=== PATIENT | female | born 1985 | race Caucasian/White ===

== ENCOUNTER 2016-06-30 09:54 | Emergency (ER) | payer SELFPAY ==
[~2016-06-30] VITALS: Ht 160 cm; Wt 59.9 kg
--- OUTSIDE RECORDS SUMMARY | 2016-06-30 10:00 | XMS REPORT | Continuity of Care Document ---
Author Author Interface Organization Interface Address Unknown Phone Unavailable Problems Problem Status Onset Date Classification Date Reported Comments Source No data available for this section Problem 06/21/2015 [facility] Medications Medication Details Route Status Patient Instructions Ordering Provider Order Date Source No Known Medications No known medications Active [facility] Allergies, Adverse Reactions, Alerts Substance Category Reaction Severity Reaction type Status Date Reported Comments Source Cephalexin Assertion Drug allergy [facility] Immunizations Immunization Date Given Site Status Last Updated Comments Source No data available for this section No data available for this section [facility]. Results Order Name Results Value Reference Range Date Interpretation Comments Source Vital Signs Vital Sign Value Date Comments Source Encounters Location Location Details Encounter Type Encounter Number Reason For Visit Attending Provider ADM Date DC Date Status Source [facility] [id number] Inpatient [id number] Baljeet Christianson 06/17/201506/17 Active [facility] [id number] Baljeet Christianson 06/18/2015 06/18/2015 [facility] Procedures Procedure Code Date Perfomer Comments Source Cholecystectomy; 04089 [facility] Thyroidectomy, total or complete 55014 [facility]
[2016-06-30] MEDS ORDERED: GABA-486 PO (10:44)
[2016-06-30] MEDS ORDERED: CALC-464 PO (10:44)
[2016-06-30] MEDS ORDERED: LEVO50TA6 PO (10:44)
[2016-06-30] MEDS ORDERED: GNT.3OO351 OU (11:52)
[2016-06-30] MEDS ORDERED: FLUT9.9S NS (11:52)
[2016-06-30] MEDS ORDERED: BENZ-13 PO (11:52)
[2016-06-30] MEDS ORDERED: LORA1TAB59 PO (11:52)
[2016-06-30] MEDS ORDERED: AMOX-358 PO (11:52)
--- NOTE | 2016-06-30 11:53 | ED Cough/URI ---
General Chief Complaint: Cough/Cold/Flu Symptoms Stated Complaint: EYE/THROAT CONJESTION, DRAINAGE Nursing Triage Note: PT CO OF COLD COUGH AND FLU SX, PT ALSO HAS BILATERAL RED EYE IRRITAION Source: patient History of Present Illness Time seen by provider: 11:40 Initial Comments C/O COUGH, CONGESTION AND SUBJECTIVE FEVER FOR 2 DAYS C/O HEADACHE C/O BODY ACHES LAST WEEK STARTED HAVING MULTIPLE STYES TO EYELIDS, NOW ARE DRAINING/EYES MATTED --NO PRIOR HISTORY OF SAME PT IS STAYING IN [facility] AND MULTIPLE SICK CONTACTS WITH SAME, AND OTHER FEMALE STAYING THERE IS ALSO BEING SEEN IN ER FOR SAME PCP: NON--JUST MOVED HERE FROM [place] Allergies and Home Medications Allergies Coded Allergies: cephalexin (Verified Allergy, Unknown, 06/30/16) Home Medications Amoxicillin/Potassium Clav 1 Each Tablet #20 1 EACH PO BID Prescribed by: GARRETT ESQUIVEL on 06/30/16 1152 Benzonatate 100 Mg Capsule #30 1-2 TAB PO TID Prescribed by: GARRETT ESQUIVEL on 06/30/16 1152 Calcium Citrate/Vitamin D2 1 Each Tablet Unknown Dose PO (Reported) Fluticasone Propionate 9.9 Ml [place].susp #1 2 SPRAYS NS BID Prescribed by: GARRETT ESQUIVEL on 06/30/16 1152 Gabapentin 100 Mg Capsule Unknown Dose PO (Reported) Gentamicin Sulfate 3.5 Gm Oint...g. #3.5 0.5 INCH OU QID Prescribed by: GARRETT ESQUIVEL on 06/30/16 1152 Levothyroxine Sodium 50 Mcg Tablet Unknown Dose PO (Reported) Loratadine/Pseudoephedrine 1 Each Tab.er.12h #20 1 EACH PO BID Prescribed by: GARRETT ESQUIVEL on 06/30/16 1152 Constitutional: see HPI fever EENTM: nose congestion see HPI Respiratory: see HPI cough Cardiovascular: no symptoms reported Genitourinary: no symptoms reported Musculoskeletal: see HPI (BODY ACHES) Skin: no symptoms reported Psychiatric/Neurological: See HPI Headache Hematologic/Lymphatic: No Symptoms Reported Immunological/Allergic: no symptoms reported Past Beoqntw-Rmvifc-Bwniuf Hx Patient Social History Alcohol Use: Denies Use Recreational Drug Use: No Smoking Status: Current Everyday Smoker Recent Foreign Travel: No Contact w/Someone Who Travel: No Recent Infectious Disease Expo: No Recent Hopitalizations: No Physical Abuse Screen: No Sexual Abuse: No Surgeries HX Surgeries: Yes (ABLATION AND THYROID) Respiratory Hx Respiratory Disorders: No Cardiovascular Hx Cardiac Disorders: No Neurological Hx Neurological Disorders: No Genitourinary Hx Genitourinary Disorders: No Gastrointestinal Hx Gastrointestinal Disorders: No Musculoskeletal Hx Musculoskeletal Disorders: No Endocrine Hx Endocrine Disorders: Yes Endocrine Disorders: Hypothyroidsim HEENT HX ENT Disorders: No Cancer Hx Cancer: No Psychosocial Hx Psychiatric Problems: No Integumentary HX Skin/Integumentary Disorder: No Physical Exam Vital Signs Vital Sign - Last 12Hours 06/30/16 10:30 Temp 97.8 Pulse 116 Resp 18 B/P 129/88 Pulse Ox 97 Capillary Refill : Less Than 3 Seconds General Appearance: WD/WN no apparent distress Eyes: Bilateral Eye Other (MULTIPLE STYES TO BOTH EYES. NO DRAINAGE OR MATTING NOTED AT THIS TIME. CONJUNCTIVA ARE NORMAL) HEENT: PERRL/EOMI TMs normal other (NASAL MUCOSAL EDEMA, YELLOW RHINORRHEA AND POST NASAL DRAINAGE. 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 no motor/sensory deficits alert normal mood/affect oriented x 3 Skin: normal color warm/dry Lymphatic: no adenopathy Progress/Results/Core Measures Results/Orders Micro Results Microbiology 06/30/16 Influenza Types A,B Antigen (JULIO) - Final, Complete My Orders Orders-GARRETT ESQUIVEL DO Influenza A And B Antigens (06/30/16 10:45) Vital Signs/I&O Vital Sign - Last 12Hours 06/30/16 06/30/16 10:30 12:07 Temp 97.8 97.8 Pulse 116 116 Resp 18 18 B/P 129/88 Pulse Ox 97 97 Blood Pressure Mean: 102 Departure Impression Impression: Primary Impression: Bronchitis Additional Impressions: Sinusitis MULTIPLE STYES Disposition: 01 HOME, SELF-CARE Condition: Stable Departure-Patient Inst. Referrals: NO,LOCAL PHYSICIAN (PCP/Family) Primary Care Physician Patient Instructions: Acute Bronchitis, Adult (DC), Bacterial Upper Respiratory Infection, Adult (DC), Stye (Hordeolum) Add. Discharge Instructions: MOIST HEAT TO EYES AT 20 MINUTE INTERVALS TYLENOL AND MOTRIN NEEDED FOR PAIN OR FEVER LOTS OF CLEAR LIQUIDS ROBITUSSIN DM FOR COUGH FOLLOW UP WITH DRRay OF CHOICE IN 2-3 DAYS IF NO BETTER All discharge instructions reviewed with patient and/or family. Voiced understanding. Scripts Fluticasone Propionate (Flonase Allergy Relief)9.9 Ml [place].susp2 Sprays NS BID #1 SPRAY Prov:GARRETT ESQUIVEL DO 06/30/16 Loratadine/Pseudoephedrine (Claritin-D 12 Hour Tablet)1 Each Tab.er.12h1 Each PO BID #20 TAB Prov:GARRETT ESQUIVEL DO 06/30/16 Benzonatate (Tessalon Perle)100 Mg Capsule1-2 Tab PO TID Cough #30 CAP Prov:GARRETT ESQUIVEL DO 06/30/16 Gentamicin Sulfate (Gentak)3.5 Gm Oint...g.0.5 Inch OU QID #3.5 TUBE Prov:GARRETT ESQUIVEL DO 06/30/16 Amoxicillin/Potassium Clav (Augmentin 875-125 Tablet)1 Each Tablet1 Each PO BID INFECTION #20 TAB Prov:GARRETT ESQUIVEL DO 06/30/16 GARRETT ESQUIVEL DO Jun 30, 2016 11:53
[2016-06-30 12:07] VITALS: BP 129/88
== END 2016-06-30 12:07 | disposition home or self-care (01) ==
LOC: ER 09:57
DX: J20.9 Acute bronchitis, unspecified (principal); J01.90 Acute sinusitis, unspecified; H00.026 Hordeolum internum left eye, unspecified eyelid; H00.023 Hordeolum internum right eye, unspecified eyelid; F17.210 Nicotine dependence, cigarettes, uncomplicated
CPT/HCPCS: 87804; 99283

== ENCOUNTER 2016-09-22 10:49 | Emergency (ER) | payer SELFPAY ==
[~2016-09-22] VITALS: Ht 160 cm; Wt 59.0 kg
[~2016-09-22 10:49] MED LIST: AMOX-358 PO; BENZ-13 PO; CALC-464 PO; FLUT9.9S NS; GABA-486 PO; GNT.3OO351 OU; LEVO50TA6 PO; LORA1TAB59 PO
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
[2016-09-22 11:52] LABS: BILIRUBIN,URINE NEGATIVE (NEGATIVE); KETONES,URINE 2+ (NEGATIVE); LEUKOCYTE ESTERASE ,URINE 2+ (NEGATIVE); NITRITE,URINE NEGATIVE (NEGATIVE); PH,URINE 7 (5-9); PROTEIN,URINE 2+ (NEGATIVE); UROBILINOGEN,URINE 1 MG/DL (NORMAL)
[2016-09-22 12:04] LABS: BASOPHILS # (AUTO) 0.1 10^3/uL (0.0-0.1); BASOPHILS % (AUTO) 0 % (0-10); EOSINOPHILS # (AUTO) 0.1 10^3/uL (0.0-0.3); EOSINOPHILS % (AUTO) 0 % (0-10); LYMPHOCYTES # (AUTO) 2.4 X 10^3 (1.0-4.0); LYMPHOCYTES % (AUTO) 14 % (12-44); MEAN CORPUSCULAR HEMOGLOBIN 32 PG (25-34); MEAN CORPUSCULAR HGB CONC 36 G/DL (32-36); MEAN CORPUSCULAR VOLUME 89 FL (80-99); MEAN PLATELET VOLUME 11.4 FL (7.4-10.4); MONOCYTES # (AUTO) 1.2 X 10^3 (0.0-1.0); MONOCYTES % (AUTO) 7 % (0-12); NEUTROPHILS # (AUTO) 13.8 X 10^3 (1.8-7.8); NEUTROPHILS % (AUTO) 79 % (42-75); PLATELET COUNT 251 10^3/uL (130-400); RED BLOOD COUNT 5.24 10^6/uL (4.35-5.85); RED CELL DISTRIBUTION WIDTH 14.8 % (10.0-14.5); WHITE BLOOD COUNT 17.6 10^3/uL (4.3-11.0)
[2016-09-22 12:06] LABS: WBC,URINE 0-2 /HPF
[2016-09-22 12:21] LABS: BAND NEUTROPHILS 1 %; BASOPHILS % (MANUAL) 0 %; EOSINOPHILS % (MANUAL) 0 %; LYMPHOCYTES % (MANUAL) 11 %; NEUTROPHILS % (MANUAL) 81 %
[2016-09-22 12:25] LABS: ALANINE AMINOTRANSFERASE 19 U/L (0-55); ALBUMIN 4.6 G/DL (3.2-4.5); ANION GAP 13 MMOL/L (5-14); ASPARTATE AMINO TRANSFERASE 19 U/L (5-34); BILIRUBIN,TOTAL 0.5 MG/DL (0.1-1.0); BLOOD UREA NITROGEN 17 MG/DL (7-18); BUN/CREATININE RATIO 20; CALCIUM 8.1 MG/DL (8.5-10.1); CARBON DIOXIDE 26 MMOL/L (21-32); CHLORIDE 107 MMOL/L (98-107); CREATININE SERUM 0.86 MG/DL (0.60-1.30); GFR ESTIMATED > 60; GLUCOSE 93 MG/DL (70-105); SALICYLATE < 5.0 MG/DL (5.0-20.0); SODIUM 146 MMOL/L (135-145); TOTAL PROTEIN 7.7 G/DL (6.4-8.2)
[2016-09-22 12:28] LABS: ACETAMINOPHEN < 10 UG/ML (10-30); ALCOHOL < 10 MG/DL (<10)
[2016-09-22] MEDS ORDERED: ALPRAZolam 0.25 MG (XANAX) TAB PO ONE (12:30)
[2016-09-22 13:40] VITALS: BP 135/84
--- OUTSIDE RECORDS SUMMARY | 2016-10-07 17:55 | XMS REPORT | Clinical Summary ---
Author Author Admin, VESTA Hatch [facility] Address Unknown Phone Unavailable Allergies, Adverse Reactions, Alerts Allergy Name Reaction Description Start Date Severity Status Provider KEFLEX Short of air, dizzy Critical Active Callie Benitez MD Conditions or Problems Problem Name Problem Code Onset Date Status Entry Date Provider Comment Standard Description Annotate SEIZURE DISORDER 780.39 Active Callie Benitez MD Other convulsions BENIGN ESSENTIAL HYPERTENSION ANTEPARTUM 642.03 Active Callie Benitez MD Benign essential hypertension complicating , childbirth, and the puerperium, antepartum condition or complication SUPERVISION, NORMAL , PRIMIGRAVIDA V22.0 Active Callie Benitez MD Supervision of normal first HYPOTHYROIDISM 244.9 Active Callie Benitez MD Unspecified hypothyroidism ANEMIA 285.9 Active Callie Benitez MD Anemia, unspecified OTHER ABNORMAL GLUCOSE 790.29 Resolved Callie Benitez MD Other abnormal glucose RH FACTOR, NEGATIVE 656.10 Active Callie Benitez MD Rhesus isoimmunization affecting management of mother, unspecified as to episode of care or not applicable Abdominal pain 789.00 Resolved Callie Benitez MD Abdominal pain, unspecified site ABDOMINAL PAIN, EPIGASTRIC 789.06 Active Justin Colbert MD Abdominal pain, epigastric Gastroenteritis, viral, acute 008.8 Active Michele Claudio DO Intestinal infection due to other organism, not elsewhere classified Accidental fall E888.9 Active Michele Claudio DO Unspecified fall OTHER ABNORMAL GLUCOSE ICD-790.29 Inactive Callie Benitez MD Abdominal pain ICD-789.00 Inactive Callie Benitez MD Medication List Medication Instructions Start Date Stop Date Generic Name NDC Status Provider Patient Instruction LEVETIRACETAM 500 MG TABS take 1/2 by mouth twice a day LEVETIRACETAM 09305660829 Active Grecia Wesley APRN Active OMEPRAZOLE 20 MG CPDR 1 tablet by mouth daily OMEPRAZOLE 56105569023 Active Grecia Wesley APRN Active PLUS 27-1 MG TABS Take one by mouth daily VIT-FE FUMARATE-FA 48946484000 No Longer Active Grecia Wesley APRN Active FOLIC ACID 1 MG TABS Take one by mouth four times daily, morning, noon, early evening and bedtime. FOLIC ACID 82501232629 No Longer Active Grecia Wesley APRN Active ZOFRAN ODT 4 MG TBDP one tab PO Q8 hours PRN ONDANSETRON 04311569800 No Longer Active Grecia Wesley APRN Active LEVOTHYROXINE SODIUM 150 MCG TABS Take one by mouth daily LEVOTHYROXINE SODIUM 04729972529 Active Grecia Wesley APRN Active LEVOTHROID 25 MCG TABS one tab PO daily LEVOTHYROXINE SODIUM 74711982650 No Longer Active Anupllerum Wesley APRN Active LEVOTHROID 137 MCG TABS 1 tab po qd with 25mcg LEVOTHYROXINE SODIUM 34263962489 No Longer Active Grecia Wesley APRN Active RAMONA 0.35 MG TABS NORETHINDRONE 30303203091 Active Callie Benitez MD Active METOPROLOL SUCCINATE ER 50 MG [id number] by mouth twice a day METOPROLOL SUCCINATE 90846220956 No Longer Active Callie Benitez MD Active POTASSIUM 99 MG TABS by mouth twice a day POTASSIUM 50183817871 No Longer Active Callie Benitez MD Active AMOXICILLIN 500 MG CAPS by mouth twice a day AMOXICILLIN 25372874016 No Longer Active Callie Benitez MD Active ULTRAM 50 MG TABS 1 tab every 4-6 hours as needed TRAMADOL HCL 78880129925 No Longer Active Callie Benitez MD Active HYDROCODONE-ACETAMINOPHEN 5-500 MG TABS 1 tab every 4-6 hours as needed HYDROCODONE-ACETAMINOPHEN 21413533143 No Longer Active Callie Benitez MD Active CALCIUM 600 MG TABS by mouth twice a day CALCIUM 87721598863 Active Callie Benitez MD Active HYDROCODONE-ACETAMINOPHEN 5-500 MG TABS 1 tab every 4-6 hours as needed HYDROCODONE-ACETAMINOPHEN 5-500 MG TABS HYDROCODONE- ACETAMINOPHEN Inactive ULTRAM 50 MG TABS 1 tab every 4-6 hours as needed ULTRAM 50 MG TABS 401582 TRAMADOL HCL Inactive AMOXICILLIN 500 MG CAPS by mouth twice a day AMOXICILLIN 500 MG CAPS 982621 AMOXICILLIN Inactive POTASSIUM 99 MG TABS by mouth twice a day POTASSIUM 99 MG TABS 696345 POTASSIUM Inactive METOPROLOL SUCCINATE ER 50 MG [id number] by mouth twice a day METOPROLOL SUCCINATE ER 50 MG [id number] METOPROLOL SUCCINATE Inactive LEVOTHROID 137 MCG TABS 1 tab po qd with 25mcg LEVOTHROID 137 MCG TABS LEVOTHYROXINE SODIUM Inactive LEVOTHROID 25 MCG TABS one tab PO daily LEVOTHROID 25 MCG TABS LEVOTHYROXINE SODIUM Inactive ZOFRAN ODT 4 MG TBDP one tab PO Q8 hours PRN ZOFRAN ODT 4 MG TBDP 687688 ONDANSETRON Inactive FOLIC ACID 1 MG TABS Take one by mouth four times daily, morning, noon, early evening and bedtime. FOLIC ACID 1 MG TABS 547816 FOLIC ACID Inactive PLUS 27-1 MG TABS Take one by mouth daily PLUS 27-1 MG TABS VIT-FE FUMARATE-FA Inactive Advance Directives Directive Description Start Date PERMISSION TO SHARE Immunizations Vaccine Administration Date Value Standard Description Seasonal influenza vaccine, injectable, containing preservative, for > 3 years old (Afluria, FluLaval, Fluzone, Fluvirin, Fluarix, Agriflu(>=18 yo)) Fluzone (>3 yrs.) [[id number]] Influenza, seasonal, injectable Boostrix (Tetanus toxoid, reduced diphtheria toxoid and acellular pertussis vaccine, adsorbed), booster Boostrix [[id number]] tetanus toxoid, reduced diphtheria toxoid, and acellular pertussis vaccine, adsorbed hepatitis B vaccine series no hepatitis B vaccine, unspecified formulation Vital Signs Date Name Value Unit Range Description blood pressure, diastolic - 8462-4 68 mm[Hg] BP raines blood pressure, systolic - 8480-6 110 mm[Hg] BP sys pulse rate E&M - 8867-4 96 /min Heart rate temperature E&M 97.3 [degF] Body temperature blood pressure, diastolic - 8462-4 90 mm[Hg] BP raines blood pressure, systolic - 8480-6 135 mm[Hg] BP sys height E&M - 8302-2 63 [in_us] Bdy height pulse rate E&M - 8867-4 102 /min Heart rate temperature E&M 98.4 [degF] Body temperature weight E&M - 3141-9 153 [lb_av] Weight Measured Encounters Code Encounter Date Provider Facility CPT-55585 Level 3 Est. Patient 12:16:13 SMALL ENGINE TECHNICIAN Michele Claudio DO [facility] CPT-80987 Level 3 Est. Patient 14:44:28 CDT Justin Colbert MD [facility] Procedures Code Procedure Name Date Entry Date Standard Description CPT-25563 Visit 16:12:23 SMALL ENGINE TECHNICIAN CPT-13321 Visit 11:24:43 SMALL ENGINE TECHNICIAN CPT-87428 Sono-OB F/U Growth 11:20:39 SMALL ENGINE TECHNICIAN CPT-32857 Visit 14:24:09 SMALL ENGINE TECHNICIAN CPT-68594 Sono OB comp > 14 weeks 09:57:55 CDT CPT-78920 Visit 09:31:46 CDT CPT-34593 Visit 14:37:39 CDT CPT-92291 Sono OB comp > 14 weeks 17:52:59 CDT CPT-47452 Administration 2+ single or combination vaccines inc oral 16:49:57 CDT CPT-13639 Administration single or combination vaccine inc oral 16 :49:57 CDT CPT-20733 Influenza split virus > age 3 16:49:57 CDT CPT-97774 Tdap 16:49:57 CDT CPT-34079 Spec Collection and Handling Fee 14:43:01 CDT CPT-31138 Visit 14:43:01 CDT CPT-OV Office Visit 09:48:35 CDT
--- OUTSIDE RECORDS SUMMARY | 2016-10-07 17:55 | XMS REPORT | Clinical Summary ---
Author Author Admin, VESAT Hatch [facility] Address Unknown Phone Unavailable Allergies, Adverse Reactions, [...] 1/2 by mouth twice a day LEVETIRACETAM 47422215520 Active Grecia Wesley APRN Active OMEPRAZOLE 20 MG CPDR 1 tablet by mouth daily OMEPRAZOLE 66197583573 Active Grecia Wesley APRN Active PLUS 27-1 MG TABS Take one by mouth daily VIT-FE FUMARATE-FA 32341121624 No Longer Active Grecia Wesley APRN Active FOLIC ACID 1 MG TABS Take one by mouth four times daily, morning, noon, early evening and bedtime. FOLIC ACID 99940615737 No Longer Active Grecia Wesley APRN Active ZOFRAN ODT 4 MG TBDP one tab PO Q8 hours PRN ONDANSETRON 10406035568 No Longer Active Grecia Wesley APRN Active LEVOTHYROXINE SODIUM 150 MCG TABS Take one by mouth daily LEVOTHYROXINE SODIUM 63074752167 Active Grecia Wesley APRN Active LEVOTHROID 25 MCG TABS one tab PO daily LEVOTHYROXINE SODIUM 04205701714 No Longer Active Anupllerum Wesley APRN Active LEVOTHROID 137 MCG TABS 1 tab po qd with 25mcg LEVOTHYROXINE SODIUM 87525238954 No Longer Active Grecia Wesley APRN Active RAMONA 0.35 MG TABS NORETHINDRONE 21437340324 Active Callie Benitez MD Active METOPROLOL SUCCINATE ER 50 MG [id number] by mouth twice a day METOPROLOL SUCCINATE 69294418603 No Longer Active Callie Benitez MD Active POTASSIUM 99 MG TABS by mouth twice a day POTASSIUM 21528584186 No Longer Active Callie Benitez MD Active AMOXICILLIN 500 MG CAPS by mouth twice a day AMOXICILLIN 54561262123 No Longer Active Callie Benitez MD Active ULTRAM 50 MG TABS 1 tab every 4-6 hours as needed TRAMADOL HCL 72774988732 No Longer Active Callie Benitez MD Active HYDROCODONE-ACETAMINOPHEN 5-500 MG TABS 1 tab every 4-6 hours as needed HYDROCODONE-ACETAMINOPHEN 69353190541 No Longer Active Callie Benitez MD Active CALCIUM 600 MG TABS by mouth twice a day CALCIUM 08855668080 Active Callie Benitez MD Active HYDROCODONE-ACETAMINOPHEN 5-500 MG TABS 1 tab every 4-6 hours as needed HYDROCODONE-ACETAMINOPHEN 5-500 MG TABS HYDROCODONE- ACETAMINOPHEN Inactive ULTRAM 50 MG TABS 1 tab every 4-6 hours as needed ULTRAM 50 MG TABS 508620 TRAMADOL HCL Inactive AMOXICILLIN 500 MG CAPS by mouth twice a day AMOXICILLIN 500 MG CAPS 572878 AMOXICILLIN Inactive POTASSIUM 99 MG TABS by mouth twice a day POTASSIUM 99 MG TABS 397681 POTASSIUM Inactive METOPROLOL SUCCINATE ER 50 MG [id number] by mouth twice a day METOPROLOL SUCCINATE ER 50 MG [id number] METOPROLOL SUCCINATE Inactive LEVOTHROID 137 MCG TABS 1 tab po qd with 25mcg LEVOTHROID 137 MCG TABS LEVOTHYROXINE SODIUM Inactive LEVOTHROID 25 MCG TABS one tab PO daily LEVOTHROID 25 MCG TABS LEVOTHYROXINE SODIUM Inactive ZOFRAN ODT 4 MG TBDP one tab PO Q8 hours PRN ZOFRAN ODT 4 MG TBDP 856671 ONDANSETRON Inactive FOLIC ACID 1 MG TABS Take one by mouth four times daily, morning, noon, early evening and bedtime. FOLIC ACID 1 MG TABS 420742 FOLIC ACID Inactive PLUS 27-1 MG TABS Take one by mouth daily PLUS 27-1 MG TABS VIT-FE FUMARATE-FA Inactive Advance Directives Directive Description Start Date PERMISSION TO SHARE Immunizations Vaccine Administration Date Value Standard Description Seasonal influenza vaccine, injectable, containing preservative, for > 3 years old (Afluria, FluLaval, Fluzone, Fluvirin, Fluarix, Agriflu(>=18 yo)) Fluzone (>3 yrs.) [[id number]] Influenza, seasonal, injectable Boostrix (Tetanus toxoid, reduced diphtheria toxoid and acellular pertussis vaccine, adsorbed), booster Boostrix [[id number]] tetanus toxoid, reduced diphtheria toxoid, and acellular [...] E&M - 3141-9 153 [lb_av] Weight Measured Diagnostic Results Date Name Value Unit Range Description Lab Report: CBC, Comp. Metabolic Panel, UADIP W/MICRO, AUTO - Chemistry sodium, serum 146 mmol/L 905-352 0795/02/26 potassium, serum 4.7 mmol/L 3.5-5.2 chloride, serum 106 mmol/L 98-107 carbon dioxide, venous blood 22.7 mmol/L 21.0-32.0 blood glucose 98 mg/dL 65-110 urea nitrogen, blood 25 mg/dL 7-18 creatinine, serum 1.10 mg/dL 0.60-1.30 alanine aminotransferase (SGPT), serum 27 U/L 12-78 aspartate aminotransferase (SGOT), serum 13 U/L 15-37 calcium, serum 8.8 mg/dL 8.5-10.1 bilirubin, serum, total 0.40 mg/dL 0.00-1.00 protein, total urine random 2+ mg/dL Negative RBC, urine, dipstick Negative Negative Lab Report: CBC, Comp. Metabolic Panel, UADIP W/MICRO, AUTO - Hematology leukocyte count, blood 9.5 10^3/MM^3 10*3/mm3 4.6-10.2 erythrocyte (RBC) count 4.88 10^6/MM^3 10*6/mm3 4.04-5.48 hemoglobin, blood 16.4 g/dL 12.0-16.0 hematocrit, blood 47.7 % 36.0-46.0 mean corpuscular volume, RBC 98 fL 80-97 mean corpuscular hemoglobin, RBC 33.6 pg 27.0-31.2 mean corpuscular hemoglobin concentration, RBC 34.4 G/DL % 31.8- 35.4 red blood cell distribution width 13.8 % 11.6-14.8 platelet count 257 10^3/MM^3 10*3/mm3 142-424 Lab Report: CBC, Comp. Metabolic Panel, UADIP W/MICRO, AUTO - Urinalysis urine color Yellow Colorless;Lightyellow;Straw;Yellow appearance, urine Cloudy Clear specific gravity, urine >=1.030 1.000-1.030 pH, urine, semiquantitative 6.0 5.0-8.5 urobilinogen, urine, semiquantitative (dipstick) 0.2 Normal leukocyte esterase, urine, by dipstick Trace Negative nitrite, urine, semiquantitative Negative Negative glucose, urine, semiquantitative Negative Negative ketones, urine, by test strip Trace Negative bilirubin, urine 1+ Negative Encounters Code Encounter Date Provider Facility CPT-43871 Level 3 Est. Patient 12:16:13 SHIPPING TEAM LEADER Michele Claudio DO [facility] CPT-45985 Level 3 Est. Patient 14:44:28 CDT Justin Colbert MD [facility] Procedures Code Procedure Name Date Entry Date Standard Description CPT-53831 Visit 16:12:23 SHIPPING TEAM LEADER CPT-84396 Visit 11:24:43 SHIPPING TEAM LEADER CPT-10530 Sono-OB F/U Growth 11:20:39 SHIPPING TEAM LEADER CPT-49860 Visit 14:24:09 SHIPPING TEAM LEADER CPT-10667 Son[facility] OB comp > 14 weeks 09:57:55 CDT CPT-07472 Visit 09:31:46 CDT CPT-90300 Visit 14:37:39 CDT CPT-46906 Sono OB comp > 14 weeks 17:52:59 CDT CPT-96546 Administration 2+ single or combination vaccines inc oral 16:49:57 CDT CPT-69633 Administration single or combination vaccine inc oral 16 :49:57 CDT CPT-68454 Influenza split virus > age 3 16:49:57 CDT CPT-71518 Tdap 16:49:57 CDT CPT-28294 Spec Collection and Handling Fee 14:43:01 CDT CPT-74658 Visit 14:43:01 CDT CPT-OV Office Visit 09:48:35 CDT
--- OUTSIDE RECORDS SUMMARY | 2016-10-07 17:55 | XMS REPORT | Continuity of Care Document ---
Author Author [employer] [facility] Address Unknown Phone Unavailable Care Team Providers Care Carpenter Assistant Installer Name Role Phone [employer] Unavailable Unavailable Problems Problem Status Onset Date Classification Date Reported Comments Source No data available for this section Problem 06/21/2015 [facility] Medication Details Route Status Patient Instructions Ordering Provider Order Date Source No Known Medications No known medications Active [employer] Allergies, Adverse Reactions, Alerts Substance Category Reaction Severity Reaction type Status Date Reported Comments Source Cephalexin Assertion Drug allergy [email or web address] Immunizations Immunization Date Given Site Status Last Updated Comments Source No data available for this section No data available for this section [facility] Results Vital Signs Encounters Location Location Details Encounter Type Encounter Number Reason For Visit Attending Provider ADM Date DC Date Status Source [facility] [id number] Inpatient [id number] Baljeet Carvajalw 06/17/201506/17 Active [employer] Procedures Procedure Code Date Perfomer Comments Source Cholecystectomy; 57579 [employer] Thyroidectomy, total or complete 22656 [employer] Plan of Care Social History Assessment and Plan Family History Value Date Source Advance Directives Order Name Results Value Date Source
--- OUTSIDE RECORDS SUMMARY | 2016-10-07 17:56 | XMS REPORT | Clinical Summary ---
Author Author Admin, VESTA Hatch [facility] Address Unknown Phone Unavailable Allergies, Adverse Reactions, [...] 1/2 by mouth twice a day LEVETIRACETAM 06775932403 Active Grecia Wesley APRN Active OMEPRAZOLE 20 MG CPDR 1 tablet by mouth daily OMEPRAZOLE 16027866245 Active Grecia Wesley APRN Active PLUS 27-1 MG TABS Take one by mouth daily VIT-FE FUMARATE-FA 01286599373 No Longer Active Grecia Wesley APRN Active FOLIC ACID 1 MG TABS Take one by mouth four times daily, morning, noon, early evening and bedtime. FOLIC ACID 49202222287 No Longer Active Grecia Wesley APRN Active ZOFRAN ODT 4 MG TBDP one tab PO Q8 hours PRN ONDANSETRON 60928795645 No Longer Active Grecia Wesley APRN Active LEVOTHYROXINE SODIUM 150 MCG TABS Take one by mouth daily LEVOTHYROXINE SODIUM 57555768151 Active Grecia Wesley APRN Active LEVOTHROID 25 MCG TABS one tab PO daily LEVOTHYROXINE SODIUM 77574004891 No Longer Active Anupllerum Wesley APRN Active LEVOTHROID 137 MCG TABS 1 tab po qd with 25mcg LEVOTHYROXINE SODIUM 86726924044 No Longer Active Grecia Wesley APRN Active RAMONA 0.35 MG TABS NORETHINDRONE 89715531480 Active Callie Benitez MD Active METOPROLOL SUCCINATE ER 50 MG [id number] by mouth twice a day METOPROLOL SUCCINATE 68012623492 No Longer Active Callie Benitez MD Active POTASSIUM 99 MG TABS by mouth twice a day POTASSIUM 36924378361 No Longer Active Callie Benitez MD Active AMOXICILLIN 500 MG CAPS by mouth twice a day AMOXICILLIN 55144550562 No Longer Active Callie Benitez MD Active ULTRAM 50 MG TABS 1 tab every 4-6 hours as needed TRAMADOL HCL 37785439471 No Longer Active Callie Benitez MD Active HYDROCODONE-ACETAMINOPHEN 5-500 MG TABS 1 tab every 4-6 hours as needed HYDROCODONE-ACETAMINOPHEN 53851103925 No Longer Active Callie Benitez MD Active CALCIUM 600 MG TABS by mouth twice a day CALCIUM 14764571306 Active Callie Benitez MD Active HYDROCODONE-ACETAMINOPHEN 5-500 MG TABS 1 tab every 4-6 hours as needed HYDROCODONE-ACETAMINOPHEN 5-500 MG TABS HYDROCODONE- ACETAMINOPHEN Inactive ULTRAM 50 MG TABS 1 tab every 4-6 hours as needed ULTRAM 50 MG TABS 061362 TRAMADOL HCL Inactive AMOXICILLIN 500 MG CAPS by mouth twice a day AMOXICILLIN 500 MG CAPS 091875 AMOXICILLIN Inactive POTASSIUM 99 MG TABS by mouth twice a day POTASSIUM 99 MG TABS 026623 POTASSIUM Inactive METOPROLOL SUCCINATE ER 50 MG [id number] by mouth twice a day METOPROLOL SUCCINATE ER 50 MG [id number] METOPROLOL SUCCINATE Inactive LEVOTHROID 137 MCG TABS 1 tab po qd with 25mcg LEVOTHROID 137 MCG TABS LEVOTHYROXINE SODIUM Inactive LEVOTHROID 25 MCG TABS one tab PO daily LEVOTHROID 25 MCG TABS LEVOTHYROXINE SODIUM Inactive ZOFRAN ODT 4 MG TBDP one tab PO Q8 hours PRN ZOFRAN ODT 4 MG TBDP 513855 ONDANSETRON Inactive FOLIC ACID 1 MG TABS Take one by mouth four times daily, morning, noon, early evening and bedtime. FOLIC ACID 1 MG TABS 048315 FOLIC ACID Inactive PLUS 27-1 MG TABS Take one by mouth daily PLUS 27-1 MG TABS VIT-FE FUMARATE-FA Inactive Advance Directives Directive Description Start Date PERMISSION TO SHARE Immunizations Vaccine Administration Date Value Standard Description Seasonal influenza vaccine, injectable, containing preservative, for > 3 years old (Afluria, FluLaval, Fluzone, Fluvirin, Fluarix, Agriflu(>=18 yo)) Fluzone (>3 yrs.) [[id number]] Influenza, seasonal, injectable Boostrix (Tetanus toxoid, reduced diphtheria toxoid and acellular pertussis vaccine, adsorbed), booster Boostrix [[id number]] tetanus toxoid, reduced diphtheria toxoid, and acellular [...] AUTO - Chemistry sodium, serum 146 mmol/L 709-564 5788/02/26 potassium, serum 4.7 mmol/L 3.5-5.2 chloride, serum [...] Negative Encounters Code Encounter Date Provider Facility CPT-25348 Level 3 Est. Patient 12:16:13 ELECTROCARDIOGRAM TECHNICIAN Michele Claudio DO [facility] CPT-65195 Level 3 Est. Patient 14:44:28 CDT Justin Colbert MD [facility] Procedures Code Procedure Name Date Entry Date Standard Description CPT-31031 Visit 16:12:23 ELECTROCARDIOGRAM TECHNICIAN CPT-78169 Visit 11:24:43 ELECTROCARDIOGRAM TECHNICIAN CPT-80764 [facility]-OB F/U Growth 11:20:39 ELECTROCARDIOGRAM TECHNICIAN CPT-76378 Visit 14:24:09 ELECTROCARDIOGRAM TECHNICIAN CPT-71753 Sono OB comp > 14 weeks 09:57:55 CDT CPT-26420 Visit 09:31:46 CDT CPT-19400 Visit 14:37:39 CDT CPT-80049 Sono OB comp > 14 weeks 17:52:59 CDT CPT-73734 Administration 2+ single or combination vaccines inc oral 16:49:57 CDT CPT-07150 Administration single or combination vaccine inc oral 16 :49:57 CDT CPT-17489 Influenza split virus > age 3 16:49:57 CDT CPT-30416 Tdap 16:49:57 CDT CPT-84777 Spec Collection and Handling Fee 14:43:01 CDT CPT-62783 Visit 14:43:01 CDT CPT-OV Office Visit 09:48:35 CDT
--- OUTSIDE RECORDS SUMMARY | 2016-10-07 17:56 | XMS REPORT | Clinical Summary ---
Author Author Admin, VESTA Hatch [facility] Address Unknown Phone Unavailable Allergies, Adverse Reactions, [...] 1/2 by mouth twice a day LEVETIRACETAM 30737419343 Active Grecia Wesley APRN Active OMEPRAZOLE 20 MG CPDR 1 tablet by mouth daily OMEPRAZOLE 22206519986 Active Grecia Wesley APRN Active PLUS 27-1 MG TABS Take one by mouth daily VIT-FE FUMARATE-FA 14506044079 No Longer Active Grecia Wesley APRN Active FOLIC ACID 1 MG TABS Take one by mouth four times daily, morning, noon, early evening and bedtime. FOLIC ACID 59747085398 No Longer Active Grecia Wesley APRN Active ZOFRAN ODT 4 MG TBDP one tab PO Q8 hours PRN ONDANSETRON 28828804503 No Longer Active Grecia Wesley APRN Active LEVOTHYROXINE SODIUM 150 MCG TABS Take one by mouth daily LEVOTHYROXINE SODIUM 76883932152 Active Grecia Wesley APRN Active LEVOTHROID 25 MCG TABS one tab PO daily LEVOTHYROXINE SODIUM 21195110550 No Longer Active Anupllerum Wesley APRN Active LEVOTHROID 137 MCG TABS 1 tab po qd with 25mcg LEVOTHYROXINE SODIUM 91708204947 No Longer Active Grecia Wesley APRN Active RAMONA 0.35 MG TABS NORETHINDRONE 91616142978 Active Callie Benitez MD Active METOPROLOL SUCCINATE ER 50 MG [id number] by mouth twice a day METOPROLOL SUCCINATE 73355249655 No Longer Active Callie Benitez MD Active POTASSIUM 99 MG TABS by mouth twice a day POTASSIUM 43316301740 No Longer Active Callie Benitez MD Active AMOXICILLIN 500 MG CAPS by mouth twice a day AMOXICILLIN 01118769532 No Longer Active Callie Benitez MD Active ULTRAM 50 MG TABS 1 tab every 4-6 hours as needed TRAMADOL HCL 81085422400 No Longer Active Callie Benitez MD Active HYDROCODONE-ACETAMINOPHEN 5-500 MG TABS 1 tab every 4-6 hours as needed HYDROCODONE-ACETAMINOPHEN 72291441019 No Longer Active Callie Benitez MD Active CALCIUM 600 MG TABS by mouth twice a day CALCIUM 18070453002 Active Callie Benitez MD Active HYDROCODONE-ACETAMINOPHEN 5-500 MG TABS 1 tab every 4-6 hours as needed HYDROCODONE-ACETAMINOPHEN 5-500 MG TABS HYDROCODONE- ACETAMINOPHEN Inactive ULTRAM 50 MG TABS 1 tab every 4-6 hours as needed ULTRAM 50 MG TABS 019670 TRAMADOL HCL Inactive AMOXICILLIN 500 MG CAPS by mouth twice a day AMOXICILLIN 500 MG CAPS 096350 AMOXICILLIN Inactive POTASSIUM 99 MG TABS by mouth twice a day POTASSIUM 99 MG TABS 224472 POTASSIUM Inactive METOPROLOL SUCCINATE ER 50 MG [id number] by mouth twice a day METOPROLOL SUCCINATE ER 50 MG [id number] METOPROLOL SUCCINATE Inactive LEVOTHROID 137 MCG TABS 1 tab po qd with 25mcg LEVOTHROID 137 MCG TABS LEVOTHYROXINE SODIUM Inactive LEVOTHROID 25 MCG TABS one tab PO daily LEVOTHROID 25 MCG TABS LEVOTHYROXINE SODIUM Inactive ZOFRAN ODT 4 MG TBDP one tab PO Q8 hours PRN ZOFRAN ODT 4 MG TBDP 199661 ONDANSETRON Inactive FOLIC ACID 1 MG TABS Take one by mouth four times daily, morning, noon, early evening and bedtime. FOLIC ACID 1 MG TABS 518393 FOLIC ACID Inactive PLUS 27-1 MG TABS Take one by mouth daily PLUS 27-1 MG TABS VIT-FE FUMARATE-FA Inactive Advance Directives Directive Description Start Date PERMISSION TO SHARE Immunizations Vaccine Administration Date Value Standard Description Boostrix (Tetanus toxoid, reduced diphtheria toxoid and acellular pertussis vaccine, adsorbed), booster Boostrix [[id number]] tetanus toxoid, reduced diphtheria toxoid, and acellular pertussis vaccine, adsorbed Seasonal influenza vaccine, injectable, containing preservative, for > 3 years old (Afluria, FluLaval, Fluzone, Fluvirin, Fluarix, Agriflu(>=18 yo)) Fluzone (>3 yrs.) [[id number]] Influenza, seasonal, injectable hepatitis B vaccine series no hepatitis B [...] AUTO - Chemistry sodium, serum 146 mmol/L 011-856 9366/02/26 potassium, serum 4.7 mmol/L 3.5-5.2 chloride, serum [...] Negative Encounters Code Encounter Date Provider Facility CPT-92505 Level 3 Est. Patient 12:16:13 PERIANESTHESIA NURSE Michele Claudio DO [facility] CPT-18219 Level 3 Est. Patient 14:44:28 CDT Justin Colbert MD [facility] Procedures Code Procedure Name Date Entry Date Standard Description CPT-68309 Visit 16:12:23 PERIANESTHESIA NURSE CPT-98301 Visit 11:24:43 PERIANESTHESIA NURSE CPT-10212 Sono-OB F/U Growth 11:20:39 PERIANESTHESIA NURSE CPT-83456 Visit 14:24:09 PERIANESTHESIA NURSE CPT-68522 Sono OB comp > 14 weeks 09:57:55 CDT CPT-06673 Visit 09:31:46 CDT CPT-50090 Visit 14:37:39 CDT CPT-90749 Sono OB comp > 14 weeks 17:52:59 CDT CPT-95757 Administration 2+ single or combination vaccines inc oral 16:49:57 CDT CPT-07384 Administration single or combination vaccine inc oral 16 :49:57 CDT CPT-36902 Influenza split virus > age 3 16:49:57 CDT CPT-13584 Tdap 16:49:57 CDT CPT-59524 Spec Collection and Handling Fee 14:43:01 CDT CPT-61583 Visit 14:43:01 CDT CPT-OV Office Visit 09:48:35 CDT
--- OUTSIDE RECORDS SUMMARY | 2016-10-07 17:56 | XMS REPORT | Clinical Summary ---
Author Author Admin, VESTA Hatch [facility] Address Unknown Phone Unavailable Allergies, Adverse [...] 1/2 by mouth twice a day LEVETIRACETAM 66822456184 Active Grecia Wesley APRN Active OMEPRAZOLE 20 MG CPDR 1 tablet by mouth daily OMEPRAZOLE 41505804920 Active Grecia Wesley APRN Active PLUS 27-1 MG TABS Take one by mouth daily VIT-FE FUMARATE-FA 49363920900 No Longer Active Grecia Wesley APRN Active FOLIC ACID 1 MG TABS Take one by mouth four times daily, morning, noon, early evening and bedtime. FOLIC ACID 97710626893 No Longer Active Grecia Wesley APRN Active ZOFRAN ODT 4 MG TBDP one tab PO Q8 hours PRN ONDANSETRON 57315250518 No Longer Active Grecia Wesley APRN Active LEVOTHYROXINE SODIUM 150 MCG TABS Take one by mouth daily LEVOTHYROXINE SODIUM 03763428405 Active Grecia Wesley APRN Active LEVOTHROID 25 MCG TABS one tab PO daily LEVOTHYROXINE SODIUM 10151211363 No Longer Active Anupllerum Wesley APRN Active LEVOTHROID 137 MCG TABS 1 tab po qd with 25mcg LEVOTHYROXINE SODIUM 70632562117 No Longer Active Grecia Wesley APRN Active RAMONA 0.35 MG TABS NORETHINDRONE 91128041116 Active Callie Benitez MD Active METOPROLOL SUCCINATE ER 50 MG [id number] by mouth twice a day METOPROLOL SUCCINATE 63254999444 No Longer Active Callie Benitez MD Active POTASSIUM 99 MG TABS by mouth twice a day POTASSIUM 56009680805 No Longer Active Callie Benitez MD Active AMOXICILLIN 500 MG CAPS by mouth twice a day AMOXICILLIN 48800473732 No Longer Active Callie Benitez MD Active ULTRAM 50 MG TABS 1 tab every 4-6 hours as needed TRAMADOL HCL 60627016300 No Longer Active Callie Benitez MD Active HYDROCODONE-ACETAMINOPHEN 5-500 MG TABS 1 tab every 4-6 hours as needed HYDROCODONE-ACETAMINOPHEN 26206382098 No Longer Active Callie Benitez MD Active CALCIUM 600 MG TABS by mouth twice a day CALCIUM 03423448381 Active Callie Benitez MD Active HYDROCODONE-ACETAMINOPHEN 5-500 MG TABS 1 tab every 4-6 hours as needed HYDROCODONE-ACETAMINOPHEN 5-500 MG TABS HYDROCODONE- ACETAMINOPHEN Inactive ULTRAM 50 MG TABS 1 tab every 4-6 hours as needed ULTRAM 50 MG TABS 706011 TRAMADOL HCL Inactive AMOXICILLIN 500 MG CAPS by mouth twice a day AMOXICILLIN 500 MG CAPS 065067 AMOXICILLIN Inactive POTASSIUM 99 MG TABS by mouth twice a day POTASSIUM 99 MG TABS 937654 POTASSIUM Inactive METOPROLOL SUCCINATE ER 50 MG [id number] by mouth twice a day METOPROLOL SUCCINATE ER 50 MG [id number] METOPROLOL SUCCINATE Inactive LEVOTHROID 137 MCG TABS 1 tab po qd with 25mcg LEVOTHROID 137 MCG TABS LEVOTHYROXINE SODIUM Inactive LEVOTHROID 25 MCG TABS one tab PO daily LEVOTHROID 25 MCG TABS LEVOTHYROXINE SODIUM Inactive ZOFRAN ODT 4 MG TBDP one tab PO Q8 hours PRN ZOFRAN ODT 4 MG TBDP 607712 ONDANSETRON Inactive FOLIC ACID 1 MG TABS Take one by mouth four times daily, morning, noon, early evening and bedtime. FOLIC ACID 1 MG TABS 516300 FOLIC ACID Inactive PLUS 27-1 MG TABS Take one by mouth daily PLUS 27-1 MG TABS VIT-FE FUMARATE-FA Inactive Advance Directives Directive Description Start Date PERMISSION TO SHARE Immunizations Vaccine Administration Date Value Standard Description Boostrix (Tetanus toxoid, reduced diphtheria toxoid and acellular pertussis vaccine, adsorbed), booster Boostrix [[id number]] tetanus toxoid, reduced diphtheria toxoid, and acellular pertussis vaccine, adsorbed Seasonal influenza vaccine, injectable, containing preservative, for > 3 years old (Afluria, FluLaval, Fluzone, Fluvirin, Fluarix, Agriflu(>=18 yo)) Fluzone (>3 yrs.) [[id number]] Influenza, seasonal, injectable hepatitis B vaccine series [...] AUTO - Chemistry sodium, serum 146 mmol/L 569-625 7987/02/26 potassium, serum 4.7 mmol/L 3.5-5.2 chloride, serum [...] Negative Encounters Code Encounter Date Provider Facility CPT-65463 Level 3 Est. Patient 12:16:13 BOBBIN CLEANER Michele Claudio DO [facility] CPT-59967 Level 3 Est. Patient 14:44:28 CDT Justin Colbert MD [facility] Procedures Code Procedure Name Date Entry Date Standard Description CPT-12740 Visit 16:12:23 BOBBIN CLEANER CPT-75221 Visit 11:24:43 BOBBIN CLEANER CPT-93861 Sono-OB F/U Growth 11:20:39 BOBBIN CLEANER CPT-89341 Visit 14:24:09 BOBBIN CLEANER CPT-18489 Sono OB comp > 14 weeks 09:57:55 CDT CPT-88922 Visit 09:31:46 CDT CPT-02391 Visit 14:37:39 CDT CPT-13712 Sono OB comp > 14 weeks 17:52:59 CDT CPT-02057 Administration 2+ single or combination vaccines inc oral 16:49:57 CDT CPT-48053 Administration single or combination vaccine inc oral 16 :49:57 CDT CPT-69312 Influenza split virus > age 3 16:49:57 CDT CPT-39609 Tdap 16:49:57 CDT CPT-97044 Spec Collection and Handling Fee 14:43:01 CDT CPT-72844 Visit 14:43:01 CDT CPT-OV Office Visit 09:48:35 CDT
--- OUTSIDE RECORDS SUMMARY | 2016-10-07 17:56 | XMS REPORT | Continuity of Care Document ---
Author Author [facility] Organization [facility] Address Unknown Phone Unavailable Allergies Medications Problems Date Dx Coded Attending Type Code Diagnosis Diagnosed By 05/18/2013 Celsa Gonsalez MD 244.0 POSTSURGICAL HYPOTHYROID 05/18/2013 Celsa Gonsalez MD 641.21 ROBERT SEPAR PLACEN-DELIV 05/18/2013 Celsa Gonsalez MD 642.51 SEVERE PREECLAMP-DELIVER 05/18/2013 Celsa Gonsalez MD 648.11 THYROID DYSFUNC-DELIVER 05/18/2013 Celsa Gonsalez MD 649.01 TOBACCO USE DISORDER COMP PREG/CHILDBIRTH/ PUERPERI 05/18/2013 Celsa Gonsalez MD 663.31 CORD ENTANGLE NEC-DELIV 05/18/2013 Celsa Gonsalez MD 664.01 DEL W 1 DEG LACERAT-DEL 05/18/2013 Celsa Gonsalez MD V12.79 PERSONAL HISTORY OTH SPEC DIGESTIVE SYSTEM DISEASE 05/18/2013 Celsa Gonsalez MD V27.0 DELIVER-SINGLE LIVEBORN Procedures Code Description Performed By Performed On 73.59 MANUAL ASSIST DELIV NEC Celsa Gonsalez MD 05/18/2013 75.69 REPAIR OB LACERATION NEC 05/18/2013 Encounters ACCT No. Visit Date/Time Discharge Status Pt. Type Provider Facility Loc./Unit Complaint [id number] 05/18/2013 17:02:00 2012 12:35:00 DIS Inpatient Celsa Gonsalez MD [facility] [id number].5WH
--- OUTSIDE RECORDS SUMMARY | 2016-10-07 17:57 | XMS REPORT | Clinical Summary ---
Author Author Admin, VESTA Hatch [facility] Address Unknown Phone Unavailable Allergies, Adverse [...] 1/2 by mouth twice a day LEVETIRACETAM 25090166387 Active Grecia Wesley APRN Active OMEPRAZOLE 20 MG CPDR 1 tablet by mouth daily OMEPRAZOLE 05295793001 Active Grecia Wesley APRN Active PLUS 27-1 MG TABS Take one by mouth daily VIT-FE FUMARATE-FA 23361866224 No Longer Active Grecia Wesley APRN Active FOLIC ACID 1 MG TABS Take one by mouth four times daily, morning, noon, early evening and bedtime. FOLIC ACID 97101852587 No Longer Active Grecia Wesley APRN Active ZOFRAN ODT 4 MG TBDP one tab PO Q8 hours PRN ONDANSETRON 08288125854 No Longer Active Grecia Wesley APRN Active LEVOTHYROXINE SODIUM 150 MCG TABS Take one by mouth daily LEVOTHYROXINE SODIUM 87792243180 Active Grecia Wesley APRN Active LEVOTHROID 25 MCG TABS one tab PO daily LEVOTHYROXINE SODIUM 08433187409 No Longer Active Anupllerum Wesley APRN Active LEVOTHROID 137 MCG TABS 1 tab po qd with 25mcg LEVOTHYROXINE SODIUM 19538821272 No Longer Active Grecia Wesley APRN Active RAMONA 0.35 MG TABS NORETHINDRONE 06390204691 Active Callie Benitez MD Active METOPROLOL SUCCINATE ER 50 MG [id number] by mouth twice a day METOPROLOL SUCCINATE 07186957443 No Longer Active Callie Benitez MD Active POTASSIUM 99 MG TABS by mouth twice a day POTASSIUM 46724971424 No Longer Active Callie Benitez MD Active AMOXICILLIN 500 MG CAPS by mouth twice a day AMOXICILLIN 11582135310 No Longer Active Callie Benitez MD Active ULTRAM 50 MG TABS 1 tab every 4-6 hours as needed TRAMADOL HCL 70719521851 No Longer Active Callie Benitez MD Active HYDROCODONE-ACETAMINOPHEN 5-500 MG TABS 1 tab every 4-6 hours as needed HYDROCODONE-ACETAMINOPHEN 99824984398 No Longer Active Callie Benitez MD Active CALCIUM 600 MG TABS by mouth twice a day CALCIUM 01752371510 Active Callie Benitez MD Active HYDROCODONE-ACETAMINOPHEN 5-500 MG TABS 1 tab every 4-6 hours as needed HYDROCODONE-ACETAMINOPHEN 5-500 MG TABS HYDROCODONE- ACETAMINOPHEN Inactive ULTRAM 50 MG TABS 1 tab every 4-6 hours as needed ULTRAM 50 MG TABS 292812 TRAMADOL HCL Inactive AMOXICILLIN 500 MG CAPS by mouth twice a day AMOXICILLIN 500 MG CAPS 293232 AMOXICILLIN Inactive POTASSIUM 99 MG TABS by mouth twice a day POTASSIUM 99 MG TABS 092793 POTASSIUM Inactive METOPROLOL SUCCINATE ER 50 MG [id number] by mouth twice a day METOPROLOL SUCCINATE ER 50 MG EC24E-DET METOPROLOL SUCCINATE Inactive LEVOTHROID 137 MCG TABS 1 tab po qd with 25mcg LEVOTHROID 137 MCG TABS LEVOTHYROXINE SODIUM Inactive LEVOTHROID 25 MCG TABS one tab PO daily LEVOTHROID 25 MCG TABS LEVOTHYROXINE SODIUM Inactive ZOFRAN ODT 4 MG TBDP one tab PO Q8 hours PRN ZOFRAN ODT 4 MG TBDP 513763 ONDANSETRON Inactive FOLIC ACID 1 MG TABS Take one by mouth four times daily, morning, noon, early evening and bedtime. FOLIC ACID 1 MG TABS 370679 FOLIC ACID Inactive PLUS 27-1 MG TABS Take one by mouth daily PLUS 27-1 MG TABS VIT-FE FUMARATE-FA Inactive Advance Directives Directive Description Start Date PERMISSION TO SHARE Immunizations Vaccine Administration Date Value Standard Description Seasonal influenza vaccine, injectable, containing preservative, for > 3 years old (Afluria, FluLaval, Fluzone, Fluvirin, Fluarix, Agriflu(>=18 yo)) Fluzone (>3 yrs.) [[id number]] Influenza, seasonal, injectable Boostrix (Tetanus toxoid, reduced diphtheria toxoid and acellular pertussis vaccine, adsorbed), booster Boostrix [[id number]] tetanus toxoid, reduced diphtheria toxoid, and acellular [...] AUTO - Chemistry sodium, serum 146 mmol/L 811-390 5458/02/26 potassium, serum 4.7 mmol/L 3.5-5.2 chloride, serum [...] Negative Encounters Code Encounter Date Provider Facility CPT-68446 Level 3 Est. Patient 12:16:13 HORSE TRAINER Michele Claudio DO [facility] -[facility] CPT-82309 Level 3 Est. Patient 14:44:28 CDT Justin Colbert MD [facility] Procedures Code Procedure Name Date Entry Date Standard Description CPT-74991 Visit 16:12:23 HORSE TRAINER CPT-21417 Visit 11:24:43 HORSE TRAINER CPT-53371 Sono-OB F/U Growth 11:20:39 HORSE TRAINER CPT-17134 Visit 14:24:09 HORSE TRAINER CPT-35894 Sono OB comp > 14 weeks 09:57:55 CDT CPT-79069 Visit 09:31:46 CDT CPT-92323 Visit 14:37:39 CDT CPT-86258 Sono OB comp > 14 weeks 17:52:59 CDT CPT-09379 Administration 2+ single or combination vaccines inc oral 16:49:57 CDT CPT-71018 Administration single or combination vaccine inc oral 16 :49:57 CDT CPT-07066 Influenza split virus > age 3 16:49:57 CDT CPT-63394 Tdap 16:49:57 CDT CPT-15274 Spec Collection and Handling Fee 14:43:01 CDT CPT-03584 Visit 14:43:01 CDT CPT-OV Office Visit 09:48:35 CDT
--- OUTSIDE RECORDS SUMMARY | 2016-10-07 17:57 | XMS REPORT | Clinical Summary ---
Author Author Admin, VESTA Organization [facility] Address Unknown Phone Allergies, Adverse Reactions, Alerts Allergy Name Reaction [...] Active Justin Colbert MD Abdominal pain, epigastric OTHER ABNORMAL GLUCOSE ICD-790.29 Inactive Callie Benitez MD Abdominal pain ICD-789.00 Inactive Callie Benitez MD Medication List Medication Instructions Start Date Stop Date Generic Name NDC Status Provider Patient Instruction LEVETIRACETAM 500 MG TABS take 1/2 by mouth twice a day LEVETIRACETAM 89165169683 Active Grecia Wesley APRN Active OMEPRAZOLE 20 MG CPDR 1 tablet by mouth daily OMEPRAZOLE 49095579978 Active Grecia Wesley APRN Active PLUS 27-1 MG TABS Take one by mouth daily VIT-FE FUMARATE-FA 94006905549 No Longer Active Grecia Wesley APRN Active FOLIC ACID 1 MG TABS Take one by mouth four times daily, morning, noon, early evening and bedtime. FOLIC ACID 03451553336 No Longer Active Grecia Wesley APRN Active ZOFRAN ODT 4 MG TBDP one tab PO Q8 hours PRN ONDANSETRON 53625866147 No Longer Active Gercia Wesley APRN Active LEVOTHYROXINE SODIUM 150 MCG TABS Take one by mouth daily LEVOTHYROXINE SODIUM 43328343479 Active Grecia Wesley APRN Active LEVOTHROID 25 MCG TABS one tab PO daily LEVOTHYROXINE SODIUM 35834873687 No Longer Active Grecia Wesley APRN Active LEVOTHROID 137 MCG TABS 1 tab po qd with 25mcg LEVOTHYROXINE SODIUM 05328739390 No Longer Active Grecia Wesley APRN Active RAMONA 0.35 MG TABS NORETHINDRONE 65980523199 Active Callie Benitez MD Active METOPROLOL SUCCINATE ER 50 MG [id number] by mouth twice a day METOPROLOL SUCCINATE 04467556175 No Longer Active Callie Benitez MD Active POTASSIUM 99 MG TABS by mouth twice a day POTASSIUM 63874985527 No Longer Active Callie Benitez MD Active AMOXICILLIN 500 MG CAPS by mouth twice a day AMOXICILLIN 76319300712 No Longer Active Callie Benitez MD Active ULTRAM 50 MG TABS 1 tab every 4-6 hours as needed TRAMADOL HCL 10101074805 No Longer Active Callie Benitez MD Active HYDROCODONE-ACETAMINOPHEN 5-500 MG TABS 1 tab every 4-6 hours as needed HYDROCODONE-ACETAMINOPHEN 45222248264 No Longer Active Callie Benitez MD Active CALCIUM 600 MG TABS by mouth twice a day CALCIUM 71256390270 Active Callie Benitez MD Active AMOXICILLIN 500 MG CAPS by mouth twice a day AMOXICILLIN 500 MG CAPS 946401 AMOXICILLIN Inactive FOLIC ACID 1 MG TABS Take one by mouth four times daily, morning, noon, early evening and bedtime. FOLIC ACID 1 MG TABS 089363 FOLIC ACID Inactive LEVOTHROID 25 MCG TABS one tab PO daily LEVOTHROID 25 MCG TABS LEVOTHYROXINE SODIUM Inactive LEVOTHROID 137 MCG TABS 1 tab po qd with 25mcg LEVOTHROID 137 MCG TABS LEVOTHYROXINE SODIUM Inactive POTASSIUM 99 MG TABS by mouth twice a day POTASSIUM 99 MG TABS 898587 POTASSIUM Inactive ULTRAM 50 MG TABS 1 tab every 4-6 hours as needed ULTRAM 50 MG TABS 744960 TRAMADOL HCL Inactive HYDROCODONE-ACETAMINOPHEN 5-500 MG TABS 1 tab every 4-6 hours as needed HYDROCODONE-ACETAMINOPHEN 5-500 MG TABS 835314 HYDROCODONE- ACETAMINOPHEN Inactive ZOFRAN ODT 4 MG TBDP one tab PO Q8 hours PRN ZOFRAN ODT 4 MG TBDP 526183 ONDANSETRON Inactive METOPROLOL SUCCINATE ER 50 MG [id number] by mouth twice a day METOPROLOL SUCCINATE ER 50 MG [id number] METOPROLOL SUCCINATE Inactive PLUS 27-1 MG TABS Take one by mouth daily PLUS 27-1 MG TABS VIT-FE FUMARATE-FA Inactive Advance Directives Directive Description Start Date PERMISSION TO SHARE Immunizations Vaccine Administration Date Value Standard Description Combined Swfoyckcdt-Qteavss-absoluixk Pertussis (dTpa) Vaccine - Booster 03/23 Boostrix [[id number]] tetanus toxoid, reduced diphtheria toxoid, and acellular pertussis vaccine, adsorbed Seasonal influenza vaccine, injectable, containing preservative, for > 3 years old (Afluria, FluLaval, Fluzone, Fluvirin, Fluarix, Agriflu(>=18 yo)) Fluzone (>3 yrs.) [[id number]] Influenza, seasonal, injectable hepatitis B vaccine series no hepatitis B vaccine, unspecified formulation Vital Signs Date Name Value Unit Range Description blood pressure, diastolic 90 mm[Hg] BP raines blood pressure, systolic 135 mm[Hg] BP sys height E&M 63 [in_us] Bdy height pulse rate E&M 102 /min Heart rate temperature E&M 98.4 [degF] Body temperature weight E&M 153 [lb_av] Weight Measured blood pressure, diastolic 80 mm[Hg] BP raines blood pressure, systolic 124 mm[Hg] BP sys height E&M 63 [in_us] Bdy height pulse rate E&M 78 /min Heart rate temperature E&M 97.8 [degF] Body temperature weight E&M 154 [lb_av] Weight Measured blood pressure, diastolic 111 mm[Hg] BP raines blood pressure, systolic 143 mm[Hg] BP sys height E&M 63 [in_us] Bdy height pulse rate E&M 114 /min Heart rate temperature E&M 97.7 [degF] Body temperature weight E&M 165 [lb_av] Weight Measured blood pressure, diastolic 80 mm[Hg] BP raines blood pressure, systolic 134 mm[Hg] BP sys height E&M 63 [in_us] Bdy height pulse rate E&M 102 /min Heart rate temperature E&M 98.3 [degF] Body temperature weight E&M 164 [lb_av] Weight Measured blood pressure, diastolic 88 mm[Hg] BP raines blood pressure, systolic 133 mm[Hg] BP sys height E&M 63 [in_us] Bdy height pulse rate E&M 86 /min Heart rate temperature E&M 97.1 [degF] Body temperature weight E&M 164 [lb_av] Weight Measured blood pressure, diastolic 83 mm[Hg] BP raines blood pressure, systolic 112 mm[Hg] BP sys height E&M 63 [in_us] Bdy height pulse rate E&M 108 /min Heart rate temperature E&M 97.6 [degF] Body temperature weight E&M 159 [lb_av] Weight Measured blood pressure, diastolic 84 mm[Hg] BP raines blood pressure, systolic 124 mm[Hg] BP sys pulse rate E&M 88 /min Heart rate temperature E&M 98.7 [degF] Body temperature weight E&M 158 [lb_av] Weight Measured Diagnostic Results Date Name Value Unit Range Description Chart Maintenance: group b strep added to flowsheet - Microbiology group B streptococcus culture negative Chart Maintenance: Outside labs entered on flowsheet - Chemistry thyroid stimulating hormone, serum 3.56 u[iU]/mL sodium, serum 139 mmol/L potassium, serum 4.0 mmol/L chloride, serum 104 mmol/L carbon dioxide, venous blood 23.2 mmol/L urea nitrogen, blood 9 mg/dL blood glucose 84 mg/dL creatinine, serum 1.05 mg/dL aspartate aminotransferase (SGOT), serum 147 U/L alanine aminotransferase (SGPT), serum 101 U/L bilirubin, serum, total 0.5 mg/dL alkaline phosphatase, serum 202 U/L calcium, serum 10.9 mg/dL Chart Maintenance: Outside labs entered on flowsheet - Hematology leukocyte count, blood 20.5 10*3/mm3 hemoglobin, blood 13.2 g/dL hematocrit, blood 38.9 % mean corpuscular volume, RBC 93.3 fL mean corpuscular hemoglobin, RBC 31.7 pg red blood cell distribution width 13.8 % platelet count 105 10*3/mm3 Lab Report: ABO GROUP & RH TYPE, ANTIBODY SCREEN, RBCW/REFL I, CBC (IN ... - Blood bank ABO blood group O Rh antigen RH (D) NEGATIVE antibody screen, serum NO ANTIBODIES DETECTED Lab Report: ABO GROUP & RH TYPE, ANTIBODY SCREEN, RBCW/REFL I, CBC (IN ... - Chemistry hepatitis B surface antigen NON-REACTIVE NON-REACTIVE Lab Report: ABO GROUP & RH TYPE, ANTIBODY SCREEN, RBCW/REFL I, CBC (IN ... - Hematology leukocyte count, blood 14.6 THOUSAND/UL 10*3/mm3 3.8-10.8 erythrocyte (RBC) count 3.59 MILLION/UL 10*6/mm3 3.80-5.10 hemoglobin, blood 11.5 g/dL 11.7-15.5 hematocrit, blood 34.9 % 35.0-45.0 mean corpuscular volume, RBC 97.0 fL 80.0-100.0 mean corpuscular hemoglobin, RBC 32.0 pg 27.0-33.0 mean corpuscular hemoglobin concentration, RBC 33.0 G/DL % 32.0- 36.0 red blood cell distribution width 14.5 % 11.0-15.0 platelet count 174 THOUSAND/UL 10*3/mm3 140-400 Lab Report: ABO GROUP & RH TYPE, ANTIBODY SCREEN, RBCW/REFL I, CBC (IN ... - Lab chlamydia DNA probe NOT DETECTED NOT DETECTED Lab Report: ABO GROUP & RH TYPE, ANTIBODY SCREEN, RBCW/REFL I, CBC (IN ... - Microbiology Neisseria gonorrhoeae DNA probe NOT DETECTED NOT DETECTED Lab Report: ABO GROUP & RH TYPE, ANTIBODY SCREEN, RBCW/REFL I, CBC (IN ... - Serology rapid plasma reagin antibody titer NON-REACTIVE NON-REACTIVE rubella antibody, serum, IgG 2.40 Lab Report: CBC, Comp. Metabolic Panel, Thyroid Stimulating Hormone (L), ... - Chemistry sodium, serum 137 mmol/L 183-424 2306/10/23 potassium, serum 3.8 mmol/L 3.5-5.2 chloride, serum 103 mmol/L 98-107 carbon dioxide, venous blood 26.2 mmol/L 21.0-32.0 blood glucose 62 mg/dL 65-110 urea nitrogen, blood 5 mg/dL 7-18 creatinine, serum 0.80 mg/dL 0.60-1.30 alanine aminotransferase (SGPT), serum 13 U/L 12-78 aspartate aminotransferase (SGOT), serum 10 U/L 15-37 alkaline phosphatase, serum 147 U/L 50-136 calcium, serum 9.4 mg/dL 8.5-10.1 bilirubin, serum, total 0.20 mg/dL 0.00-1.00 TSH 10.55 m[iU]/mL 0.36-3.74 thyroxine, serum, free 0.79 ng/dL 0.76-1.46 protein, total urine random Negative mg/dL Negative RBC, urine, dipstick Negative Negative Lab Report: CBC, Comp. Metabolic Panel, Thyroid Stimulating Hormone (L), ... - Hematology leukocyte count, blood 15.6 10^3/MM^3 10*3/mm3 4.6-10.2 erythrocyte (RBC) count 3.83 10^6/MM^3 10*6/mm3 4.04-5.48 hemoglobin, blood 12.2 g/dL 12.0-16.0 hematocrit, blood 37.1 % 36.0-46.0 mean corpuscular volume, RBC 97 fL 80-97 mean corpuscular hemoglobin, RBC 31.7 pg 27.0-31.2 mean corpuscular hemoglobin concentration, RBC 32.8 G/DL % 31.8- 35.4 red blood cell distribution width 14.0 % 11.6-14.8 platelet count 175 10^3/MM^3 10*3/mm3 142-424 Lab Report: CBC, Comp. Metabolic Panel, Thyroid Stimulating Hormone (L), ... - Urinalysis urine color Yellow Colorless;Lightyellow;Straw;Yellow appearance, urine Clear Clear specific gravity, urine 1.015 1.000-1.030 pH, urine, semiquantitative 7.5 5.0-8.5 urobilinogen, urine, semiquantitative (dipstick) 0.2 Normal leukocyte esterase, urine, by dipstick Negative Negative nitrite, urine, semiquantitative Negative Negative glucose, urine, semiquantitative Negative Negative ketones, urine, by test strip Negative Negative bilirubin, urine Negative Negative Lab Report: Thyroid Stimulating Hormone (L), Free Thyroxine (L), OBGTT1, ... - Chemistry thyroid stimulating hormone, serum 6000 u[iU]/mL Units converted. See lab report for original value. thyroxine, serum, free 0.78 ng/dL 0.76-1.46 sodium, serum 138 mmol/L 246-869 2349/09/25 potassium, serum 3.6 mmol/L 3.5-5.2 chloride, serum 104 mmol/L 98-107 carbon dioxide, venous blood 24.0 mmol/L 21.0-32.0 blood glucose 69 mg/dL 65-110 urea nitrogen, blood 7 mg/dL 7-18 creatinine, serum 0.70 mg/dL 0.60-1.30 alanine aminotransferase (SGPT), serum 12 U/L 12-78 aspartate aminotransferase (SGOT), serum 10 U/L 15-37 alkaline phosphatase, serum 119 U/L 50-136 calcium, serum 8.5 mg/dL 8.5-10.1 bilirubin, serum, total 0.20 mg/dL 0.00-1.00 Office Visit: Initial OB Visit - Blood bank Rh antigen neg antibody screen, serum negative blood type with RH factor O Office Visit: Initial OB Visit - Chemistry Neisseria gonorrhoeae, genital culture negative glucose tolerance test 155 hepatitis B surface antigen negative protein, total urine random 1+ mg/dL Office Visit: Initial OB Visit - Hematology hemoglobin, blood 11.5 g/dL Office Visit: Initial OB Visit - Lab chlamydia DNA probe negative Office Visit: Initial OB Visit - Microbiology urine culture (with units of CFunits/mL) negative {cfu}/mL Herpes Simplex Virus Genital no Office Visit: Initial OB Visit - Serology VDRL, serum negative rubella antibody, serum, titer immune Office Visit: Initial OB Visit - Urinalysis glucose, urine, semiquantitative N nitrite, urine, semiquantitative N Office Visit: OB Visit - Chemistry protein, total urine random N mg/dL RBC, urine, dipstick hemolyzed trace protein, total urine random 1+ mg/dL Office Visit: OB Visit - Urinalysis glucose, urine, semiquantitative N nitrite, urine, semiquantitative N specific gravity, urine 1.005 ketones, urine, by test strip negative bilirubin, urine negative glucose, urine, semiquantitative N nitrite, urine, semiquantitative N urine color yellow appearance, urine cloudy leukocyte esterase, urine, by dipstick trace urobilinogen, urine, semiquantitative (dipstick) negative pH, urine, semiquantitative 6 Office Visit: OB Visit 29.0 - Chemistry protein, total urine random 1+ mg/dL Office Visit: OB Visit 29.0 - Urinalysis glucose, urine, semiquantitative N nitrite, urine, semiquantitative N Office Visit: OB Visit 35.0 - Chemistry protein, total urine random 1+ mg/dL Office Visit: OB Visit 35.0 - Urinalysis glucose, urine, semiquantitative N nitrite, urine, semiquantitative N Encounters Code Encounter Date Provider Facility CPT-74348 Level 3 Est. Patient 14:44:28 CDT Justin Colbert MD [facility] Procedures Code Procedure Name Date Entry Date Standard Description CPT-03008 Visit 16:12:23 LAND CONSERVATION SPECIALIST CPT-66978 Visit 11:24:43 LAND CONSERVATION SPECIALIST CPT-23930 [facility]-OB F/U Growth 11:20:39 LAND CONSERVATION SPECIALIST CPT-53034 Visit 14:24:09 LAND CONSERVATION SPECIALIST CPT-23758 [facility] OB comp > 14 weeks 09:57:55 CDT CPT-41777 Visit 09:31:46 CDT CPT-13011 Visit 14:37:39 CDT CPT-16665 [facility] OB comp > 14 weeks 17:52:59 CDT CPT-54627 Administration 2+ single or combination vaccines inc oral 16:49:57 CDT CPT-80754 Administration single or combination vaccine inc oral 16 :49:57 CDT CPT-84003 Influenza split virus > age 3 16:49:57 CDT CPT-04235 Tdap 16:49:57 CDT CPT-55401 Spec Collection and Handling Fee 14:43:01 CDT CPT-89246 Visit 14:43:01 CDT CPT-OV Office Visit 09:48:35 CDT
--- OUTSIDE RECORDS SUMMARY | 2016-10-07 17:58 | XMS REPORT | Clinical Summary ---
Author Author Admin, VESTA Organization [facility] Address Unknown Phone Allergies, Adverse Reactions, Alerts [...] 1/2 by mouth twice a day LEVETIRACETAM 96898928509 Active Grecia Wesley APRN Active OMEPRAZOLE 20 MG CPDR 1 tablet by mouth daily OMEPRAZOLE 56434587739 Active Grecia Wesley APRN Active PLUS 27-1 MG TABS Take one by mouth daily VIT-FE FUMARATE-FA 09848161391 No Longer Active Grecia Wesley APRN Active FOLIC ACID 1 MG TABS Take one by mouth four times daily, morning, noon, early evening and bedtime. FOLIC ACID 54556360522 No Longer Active Grecia Wesley APRN Active ZOFRAN ODT 4 MG TBDP one tab PO Q8 hours PRN ONDANSETRON 31825225099 No Longer Active Grecia Wesley APRN Active LEVOTHYROXINE SODIUM 150 MCG TABS Take one by mouth daily LEVOTHYROXINE SODIUM 28690574907 Active Grecia Wesley APRN Active LEVOTHROID 25 MCG TABS one tab PO daily LEVOTHYROXINE SODIUM 26575845086 No Longer Active Grecia Wesley APRN Active LEVOTHROID 137 MCG TABS 1 tab po qd with 25mcg LEVOTHYROXINE SODIUM 64317273377 No Longer Active Grecia Wesley APRN Active RAMONA 0.35 MG TABS NORETHINDRONE 93015382948 Active Callie Benitez MD Active METOPROLOL SUCCINATE ER 50 MG [id number] by mouth twice a day METOPROLOL SUCCINATE 30780748425 No Longer Active Callie Benitez MD Active POTASSIUM 99 MG TABS by mouth twice a day POTASSIUM 19343625818 No Longer Active Callie Benitez MD Active AMOXICILLIN 500 MG CAPS by mouth twice a day AMOXICILLIN 69994392528 No Longer Active Callie Benitez MD Active ULTRAM 50 MG TABS 1 tab every 4-6 hours as needed TRAMADOL HCL 12509019836 No Longer Active Callie Benitez MD Active HYDROCODONE-ACETAMINOPHEN 5-500 MG TABS 1 tab every 4-6 hours as needed HYDROCODONE-ACETAMINOPHEN 45380407176 No Longer Active Callie Benitez MD Active CALCIUM 600 MG TABS by mouth twice a day CALCIUM 76720477295 Active Callie Benitez MD Active AMOXICILLIN 500 MG CAPS by mouth twice a day AMOXICILLIN 500 MG CAPS 453329 AMOXICILLIN Inactive FOLIC ACID 1 MG TABS Take one by mouth four times daily, morning, noon, early evening and bedtime. FOLIC ACID 1 MG TABS 444162 FOLIC ACID Inactive LEVOTHROID 25 MCG TABS one tab PO daily LEVOTHROID 25 MCG TABS LEVOTHYROXINE SODIUM Inactive LEVOTHROID 137 MCG TABS 1 tab po qd with 25mcg LEVOTHROID 137 MCG TABS LEVOTHYROXINE SODIUM Inactive POTASSIUM 99 MG TABS by mouth twice a day POTASSIUM 99 MG TABS 128585 POTASSIUM Inactive ULTRAM 50 MG TABS 1 tab every 4-6 hours as needed ULTRAM 50 MG TABS 321785 TRAMADOL HCL Inactive HYDROCODONE-ACETAMINOPHEN 5-500 MG TABS 1 tab every 4-6 hours as needed HYDROCODONE-ACETAMINOPHEN 5-500 MG TABS 324823 HYDROCODONE- ACETAMINOPHEN Inactive ZOFRAN ODT 4 MG TBDP one tab PO Q8 hours PRN ZOFRAN ODT 4 MG TBDP 416505 ONDANSETRON Inactive METOPROLOL SUCCINATE ER 50 MG [id number] by mouth twice a day METOPROLOL SUCCINATE ER 50 MG [id number] METOPROLOL SUCCINATE Inactive PLUS 27-1 MG TABS Take one by mouth daily PLUS 27-1 MG TABS VIT-FE FUMARATE-FA Inactive Advance Directives Directive Description Start Date PERMISSION TO SHARE Immunizations Vaccine Administration Date Value Standard Description Combined Qjddqmbjfk-Fqmregr-mlrotbzxj Pertussis (dTpa) Vaccine - Booster 03/23 Boostrix [[id number]] tetanus toxoid, reduced diphtheria toxoid, and acellular pertussis vaccine, adsorbed Seasonal influenza vaccine, injectable, containing preservative, for > 3 years old (Afluria, FluLaval, Fluzone, Fluvirin, Fluarix, Agriflu(>=18 yo)) Fluzone (>3 yrs.) [[id number]] Influenza, seasonal, injectable hepatitis B vaccine series [...] ... - Chemistry sodium, serum 137 mmol/L 492-403 4253/10/23 potassium, serum 3.8 mmol/L 3.5-5.2 chloride, serum [...] 0.78 ng/dL 0.76-1.46 sodium, serum 138 mmol/L 305-089 2404/09/25 potassium, serum 3.6 mmol/L 3.5-5.2 chloride, serum [...] N Encounters Code Encounter Date Provider Facility CPT-90292 Level 3 Est. Patient 14:44:28 CDT Justin Colbert MD [facility] Procedures Code Procedure Name Date Entry Date Standard Description CPT-96827 Visit 16:12:23 DOCTOR OF AUDIOLOGY CPT-00088 Visit 11:24:43 DOCTOR OF AUDIOLOGY CPT-58875 [facility] F/U Growth 11:20:39 DOCTOR OF AUDIOLOGY CPT-97922 Visit 14:24:09 DOCTOR OF AUDIOLOGY CPT-72463 [facility] OB comp > 14 weeks 09:57:55 CDT CPT-03582 Visit 09:31:46 CDT CPT-60713 Visit 14:37:39 CDT CPT-50139 [facility] OB comp > 14 weeks 17:52:59 CDT CPT-98494 Administration 2+ single or combination vaccines inc oral 16:49:57 CDT CPT-22176 Administration single or combination vaccine inc oral 16 :49:57 CDT CPT-42547 Influenza split virus > age 3 16:49:57 CDT CPT-72429 Tdap 16:49:57 CDT CPT-97542 Spec Collection and Handling Fee 14:43:01 CDT CPT-26339 Visit 14:43:01 CDT CPT-OV Office Visit 09:48:35 CDT
--- OUTSIDE RECORDS SUMMARY | 2016-10-07 17:58 | XMS REPORT | Clinical Summary ---
Author Author Admin, VESTA Organization [facility] Address Unknown Phone Allergies, Adverse Reactions, [...] 1/2 by mouth twice a day LEVETIRACETAM 56110444246 Active Grecia Wesley APRN Active OMEPRAZOLE 20 MG CPDR 1 tablet by mouth daily OMEPRAZOLE 95428560019 Active Grecia Wesley APRN Active PLUS 27-1 MG TABS Take one by mouth daily VIT-FE FUMARATE-FA 47394354233 No Longer Active Grecia Wesley APRN Active FOLIC ACID 1 MG TABS Take one by mouth four times daily, morning, noon, early evening and bedtime. FOLIC ACID 40916410345 No Longer Active Grecia Wesley APRN Active ZOFRAN ODT 4 MG TBDP one tab PO Q8 hours PRN ONDANSETRON 16858908343 No Longer Active Grecia Wesley APRN Active LEVOTHYROXINE SODIUM 150 MCG TABS Take one by mouth daily LEVOTHYROXINE SODIUM 31230081671 Active Grecia Wesley APRN Active LEVOTHROID 25 MCG TABS one tab PO daily LEVOTHYROXINE SODIUM 13491986818 No Longer Active Grecia Wesley APRN Active LEVOTHROID 137 MCG TABS 1 tab po qd with 25mcg LEVOTHYROXINE SODIUM 64225051545 No Longer Active Grecia Wesley APRN Active RAMONA 0.35 MG TABS NORETHINDRONE 67596508376 Active Callie Benitez MD Active METOPROLOL SUCCINATE ER 50 MG [id number] by mouth twice a day METOPROLOL SUCCINATE 44336636100 No Longer Active Callie Benitez MD Active POTASSIUM 99 MG TABS by mouth twice a day POTASSIUM 40572045650 No Longer Active Callie Benitez MD Active AMOXICILLIN 500 MG CAPS by mouth twice a day AMOXICILLIN 68434557002 No Longer Active Callie Benitez MD Active ULTRAM 50 MG TABS 1 tab every 4-6 hours as needed TRAMADOL HCL 71286259924 No Longer Active Callie Benitez MD Active HYDROCODONE-ACETAMINOPHEN 5-500 MG TABS 1 tab every 4-6 hours as needed HYDROCODONE-ACETAMINOPHEN 79684059641 No Longer Active Callie Benitez MD Active CALCIUM 600 MG TABS by mouth twice a day CALCIUM 11838477894 Active Callie Benitez MD Active AMOXICILLIN 500 MG CAPS by mouth twice a day AMOXICILLIN 500 MG CAPS 492724 AMOXICILLIN Inactive FOLIC ACID 1 MG TABS Take one by mouth four times daily, morning, noon, early evening and bedtime. FOLIC ACID 1 MG TABS 873841 FOLIC ACID Inactive LEVOTHROID 25 MCG TABS one tab PO daily LEVOTHROID 25 MCG TABS LEVOTHYROXINE SODIUM Inactive LEVOTHROID 137 MCG TABS 1 tab po qd with 25mcg LEVOTHROID 137 MCG TABS LEVOTHYROXINE SODIUM Inactive POTASSIUM 99 MG TABS by mouth twice a day POTASSIUM 99 MG TABS 924920 POTASSIUM Inactive ULTRAM 50 MG TABS 1 tab every 4-6 hours as needed ULTRAM 50 MG TABS 473334 TRAMADOL HCL Inactive HYDROCODONE-ACETAMINOPHEN 5-500 MG TABS 1 tab every 4-6 hours as needed HYDROCODONE-ACETAMINOPHEN 5-500 MG TABS 892128 HYDROCODONE- ACETAMINOPHEN Inactive ZOFRAN ODT 4 MG TBDP one tab PO Q8 hours PRN ZOFRAN ODT 4 MG TBDP 525874 ONDANSETRON Inactive METOPROLOL SUCCINATE ER 50 MG HL45E-TQS by mouth twice a day METOPROLOL SUCCINATE ER 50 MG [id number] METOPROLOL SUCCINATE Inactive PLUS 27-1 MG TABS Take one by mouth daily PLUS 27-1 MG TABS VIT-FE FUMARATE-FA Inactive Advance Directives Directive Description Start Date PERMISSION TO SHARE Immunizations Vaccine Administration Date Value Standard Description Combined Zvkqzxofnq-Vvmmomh-fqajjntsn Pertussis (dTpa) Vaccine - Booster 03/23 Boostrix [[id number]] tetanus toxoid, reduced diphtheria toxoid, and acellular pertussis vaccine, adsorbed Seasonal influenza vaccine, injectable, containing preservative, for > 3 years old (Afluria, FluLaval, Fluzone, Fluvirin, Fluarix, Agriflu(>=18 yo)) Fluzone (>3 yrs.) [[id number]] Influenza, seasonal, injectable hepatitis B vaccine series [...] ... - Chemistry sodium, serum 137 mmol/L 956-555 6248/10/23 potassium, serum 3.8 mmol/L 3.5-5.2 chloride, serum [...] 0.78 ng/dL 0.76-1.46 sodium, serum 138 mmol/L 054-767 9042/09/25 potassium, serum 3.6 mmol/L 3.5-5.2 chloride, serum [...] N Encounters Code Encounter Date Provider Facility CPT-85155 Level 3 Est. Patient 14:44:28 CDT Justin Colbert MD [facility] Procedures Code Procedure Name Date Entry Date Standard Description CPT-85824 Visit 16:12:23 SWEATER OPERATOR CPT-39961 Visit 11:24:43 SWEATER OPERATOR CPT-65859 [facility]-OB F/U Growth 11:20:39 SWEATER OPERATOR CPT-31802 Visit 14:24:09 SWEATER OPERATOR CPT-13261 Son[facility] OB comp > 14 weeks 09:57:55 CDT CPT-56552 Visit 09:31:46 CDT CPT-27214 Visit 14:37:39 CDT CPT-29670 [facility] OB comp > 14 weeks 17:52:59 CDT CPT-85104 Administration 2+ single or combination vaccines inc oral 16:49:57 CDT CPT-55980 Administration single or combination vaccine inc oral 16 :49:57 CDT CPT-27373 Influenza split virus > age 3 16:49:57 CDT CPT-55083 Tdap 16:49:57 CDT CPT-09153 Spec Collection and Handling Fee 14:43:01 CDT CPT-25601 Visit 14:43:01 CDT CPT-OV Office Visit 09:48:35 CDT
--- OUTSIDE RECORDS SUMMARY | 2016-10-07 17:58 | XMS REPORT | Referral Summary ---
Author Author [facility] Organization [facility] Address Unknown Phone Unavailable Care Team Providers Care Promotion Producer Name Role Phone [place] Muhammad PCP Encounter VC Date(s): 12/31/15 - 12/31/15 [facility] [address], [place] [address] Discharge Diagnosis: Insect bites Discharge Diagnosis: Drug reaction Discharge Diagnosis: Tobacco abuse Discharge Diagnosis: Tobacco abuse counseling Discharge Diagnosis: Drug reaction Discharge Disposition: 01-Home or Self Care Attending Physician: Rojas Rueda MD Admitting Physician: Rojas Rueda MD Vital Signs Most recent to 1 oldest [Reference Range]: Temperature Oral 37.2 degC [35.8-37.3 degC] (12/31/15 12:09 PM) Peripheral Pulse 72 bpm Rate [60-100 bpm] (12/31/15 1:00 PM) Respiratory Rate 18 br/min [14-20 br/min] (12/31/15 1:00 PM) Blood Pressure 130/88 mmHg [90-140/60-90 mmHg] (12/31/15 1:00 PM) SpO2 97 % (12/31/15 1:00 PM) Problem List Condition Effective Dates Status Health Status Informant Hypothyroidism(Confi Active patient rmed) Allergies, Adverse Reactions, Alerts Substance Reaction Severity Status cephalexin unknown Active Medications Calcium 500+D tabs, Chewed, BID, 0 Refill(s) Start Date: 12/31/15 Status: Ordered levothyroxine Daily, 0 Refill(s) Start Date: 12/31/15 Status: Ordered potassium chloride 10 mEq oral capsule, extended release mEq caps, Oral, BID, 0 Refill(s) Start Date: 12/31/15 Status: Ordered Results No data available for this section Immunizations No data available for this section Procedures Procedure Date Related Diagnosis Body Site Thyroidectomy Social History Social History Type Response Smoking Status Current every day smoker; Type: Cigarettes; Tobacco use per day: Pack Assessment and Plan No data available for this section
--- OUTSIDE RECORDS SUMMARY | 2016-10-07 17:59 | XMS REPORT | Clinical Summary ---
Author Author Admin, VESTA Hatch [facility] Address Unknown Phone Unavailable Allergies, Adverse Reactions, [...] 1/2 by mouth twice a day LEVETIRACETAM 44224583669 Active Grecia Wesley APRN Active OMEPRAZOLE 20 MG CPDR 1 tablet by mouth daily OMEPRAZOLE 08032260321 Active Grecia Wesley APRN Active PLUS 27-1 MG TABS Take one by mouth daily VIT-FE FUMARATE-FA 65653141403 No Longer Active Grecia Wesley APRN Active FOLIC ACID 1 MG TABS Take one by mouth four times daily, morning, noon, early evening and bedtime. FOLIC ACID 88971852770 No Longer Active Grecia Wesley APRN Active ZOFRAN ODT 4 MG TBDP one tab PO Q8 hours PRN ONDANSETRON 11278311162 No Longer Active Grecia Wesley APRN Active LEVOTHYROXINE SODIUM 150 MCG TABS Take one by mouth daily LEVOTHYROXINE SODIUM 51391170714 Active Grecia Wesley APRN Active LEVOTHROID 25 MCG TABS one tab PO daily LEVOTHYROXINE SODIUM 46414878040 No Longer Active Anupllerum Wesley APRN Active LEVOTHROID 137 MCG TABS 1 tab po qd with 25mcg LEVOTHYROXINE SODIUM 41480695475 No Longer Active Grecia Wesley APRN Active RAMONA 0.35 MG TABS NORETHINDRONE 31636030454 Active Callie Benitez MD Active METOPROLOL SUCCINATE ER 50 MG [id number]-DSD by mouth twice a day METOPROLOL SUCCINATE 62486738063 No Longer Active Callie Benitez MD Active POTASSIUM 99 MG TABS by mouth twice a day POTASSIUM 50730835696 No Longer Active Callie Benitez MD Active AMOXICILLIN 500 MG CAPS by mouth twice a day AMOXICILLIN 01809205832 No Longer Active Callie Benitez MD Active ULTRAM 50 MG TABS 1 tab every 4-6 hours as needed TRAMADOL HCL 33672115288 No Longer Active Callie Benitez MD Active HYDROCODONE-ACETAMINOPHEN 5-500 MG TABS 1 tab every 4-6 hours as needed HYDROCODONE-ACETAMINOPHEN 48533256730 No Longer Active Callie Benitez MD Active CALCIUM 600 MG TABS by mouth twice a day CALCIUM 55618820911 Active Callie Benitez MD Active HYDROCODONE-ACETAMINOPHEN 5-500 MG TABS 1 tab every 4-6 hours as needed HYDROCODONE-ACETAMINOPHEN 5-500 MG TABS HYDROCODONE- ACETAMINOPHEN Inactive ULTRAM 50 MG TABS 1 tab every 4-6 hours as needed ULTRAM 50 MG TABS 617013 TRAMADOL HCL Inactive AMOXICILLIN 500 MG CAPS by mouth twice a day AMOXICILLIN 500 MG CAPS 773727 AMOXICILLIN Inactive POTASSIUM 99 MG TABS by mouth twice a day POTASSIUM 99 MG TABS 879919 POTASSIUM Inactive METOPROLOL SUCCINATE ER 50 MG [id number] by mouth twice a day METOPROLOL SUCCINATE ER 50 MG [id number] METOPROLOL SUCCINATE Inactive LEVOTHROID 137 MCG TABS 1 tab po qd with 25mcg LEVOTHROID 137 MCG TABS LEVOTHYROXINE SODIUM Inactive LEVOTHROID 25 MCG TABS one tab PO daily LEVOTHROID 25 MCG TABS LEVOTHYROXINE SODIUM Inactive ZOFRAN ODT 4 MG TBDP one tab PO Q8 hours PRN ZOFRAN ODT 4 MG TBDP 127600 ONDANSETRON Inactive FOLIC ACID 1 MG TABS Take one by mouth four times daily, morning, noon, early evening and bedtime. FOLIC ACID 1 MG TABS 134191 FOLIC ACID Inactive PLUS 27-1 MG TABS Take one by mouth daily PLUS 27-1 MG TABS VIT-FE FUMARATE-FA Inactive Advance Directives Directive Description Start Date PERMISSION TO SHARE Immunizations Vaccine Administration Date Value Standard Description Seasonal influenza vaccine, injectable, containing preservative, for > 3 years old (Afluria, FluLaval, Fluzone, Fluvirin, Fluarix, Agriflu(>=18 yo)) Fluzone (>3 yrs.) [[id number]] Influenza, seasonal, injectable Boostrix (Tetanus toxoid, reduced diphtheria toxoid and acellular pertussis vaccine, adsorbed), booster Boostrix [[id number]] tetanus toxoid, reduced diphtheria toxoid, and acellular [...] AUTO - Chemistry sodium, serum 146 mmol/L 103-696 1417/02/26 potassium, serum 4.7 mmol/L 3.5-5.2 chloride, serum [...] Negative Encounters Code Encounter Date Provider Facility CPT-29910 Level 3 Est. Patient 12:16:13 BODY TECHNICIAN Michele Claudio DO [facility] CPT-31596 Level 3 Est. Patient 14:44:28 CDT Justin Colbert MD [facility] Procedures Code Procedure Name Date Entry Date Standard Description CPT-75007 Visit 16:12:23 BODY TECHNICIAN CPT-21135 Visit 11:24:43 BODY TECHNICIAN CPT-48098 Sono-OB F/U Growth 11:20:39 BODY TECHNICIAN CPT-56785 Visit 14:24:09 BODY TECHNICIAN CPT-31397 Sono OB comp > 14 weeks 09:57:55 CDT CPT-80715 Visit 09:31:46 CDT CPT-08252 Visit 14:37:39 CDT CPT-33566 Sono OB comp > 14 weeks 17:52:59 CDT CPT-10133 Administration 2+ single or combination vaccines inc oral 16:49:57 CDT CPT-48263 Administration single or combination vaccine inc oral 16 :49:57 CDT CPT-10782 Influenza split virus > age 3 16:49:57 CDT CPT-01702 Tdap 16:49:57 CDT CPT-16808 Spec Collection and Handling Fee 14:43:01 CDT CPT-73860 Visit 14:43:01 CDT CPT-OV Office Visit 09:48:35 CDT
--- OUTSIDE RECORDS SUMMARY | 2016-10-07 17:59 | XMS REPORT | Clinical Summary ---
Author Author Admin, VESTA Hatch [facility] Address Unknown Phone Unavailable Allergies, Adverse Reactions, [...] 1/2 by mouth twice a day LEVETIRACETAM 86203813694 Active Grecia Wesley APRN Active OMEPRAZOLE 20 MG CPDR 1 tablet by mouth daily OMEPRAZOLE 87110695883 Active Grecia Wesley APRN Active PLUS 27-1 MG TABS Take one by mouth daily VIT-FE FUMARATE-FA 71144894477 No Longer Active Grecia Wesley APRN Active FOLIC ACID 1 MG TABS Take one by mouth four times daily, morning, noon, early evening and bedtime. FOLIC ACID 87459851127 No Longer Active Grecia Wesley APRN Active ZOFRAN ODT 4 MG TBDP one tab PO Q8 hours PRN ONDANSETRON 31352580251 No Longer Active Grecia Wesley APRN Active LEVOTHYROXINE SODIUM 150 MCG TABS Take one by mouth daily LEVOTHYROXINE SODIUM 45778440568 Active Grecia Wesley APRN Active LEVOTHROID 25 MCG TABS one tab PO daily LEVOTHYROXINE SODIUM 67425657164 No Longer Active Anupllerum Wesley APRN Active LEVOTHROID 137 MCG TABS 1 tab po qd with 25mcg LEVOTHYROXINE SODIUM 96152995448 No Longer Active Grecia Wesley APRN Active RAMONA 0.35 MG TABS NORETHINDRONE 89892885603 Active Callie Benitez MD Active METOPROLOL SUCCINATE ER 50 MG [id number] by mouth twice a day METOPROLOL SUCCINATE 03247641496 No Longer Active Callie Benitez MD Active POTASSIUM 99 MG TABS by mouth twice a day POTASSIUM 28516746811 No Longer Active Callie Benitez MD Active AMOXICILLIN 500 MG CAPS by mouth twice a day AMOXICILLIN 61559151470 No Longer Active Callie Benitez MD Active ULTRAM 50 MG TABS 1 tab every 4-6 hours as needed TRAMADOL HCL 85666498797 No Longer Active Callie Benitez MD Active HYDROCODONE-ACETAMINOPHEN 5-500 MG TABS 1 tab every 4-6 hours as needed HYDROCODONE-ACETAMINOPHEN 13723208235 No Longer Active Callie Benitez MD Active CALCIUM 600 MG TABS by mouth twice a day CALCIUM 85663858328 Active Callie Benitez MD Active HYDROCODONE-ACETAMINOPHEN 5-500 MG TABS 1 tab every 4-6 hours as needed HYDROCODONE-ACETAMINOPHEN 5-500 MG TABS HYDROCODONE- ACETAMINOPHEN Inactive ULTRAM 50 MG TABS 1 tab every 4-6 hours as needed ULTRAM 50 MG TABS 074937 TRAMADOL HCL Inactive AMOXICILLIN 500 MG CAPS by mouth twice a day AMOXICILLIN 500 MG CAPS 833911 AMOXICILLIN Inactive POTASSIUM 99 MG TABS by mouth twice a day POTASSIUM 99 MG TABS 353440 POTASSIUM Inactive METOPROLOL SUCCINATE ER 50 MG [id number]-[id number] by mouth twice a day METOPROLOL SUCCINATE ER 50 MG ZG31Z-GAV METOPROLOL SUCCINATE Inactive LEVOTHROID 137 MCG TABS 1 tab po qd with 25mcg LEVOTHROID 137 MCG TABS LEVOTHYROXINE SODIUM Inactive LEVOTHROID 25 MCG TABS one tab PO daily LEVOTHROID 25 MCG TABS LEVOTHYROXINE SODIUM Inactive ZOFRAN ODT 4 MG TBDP one tab PO Q8 hours PRN ZOFRAN ODT 4 MG TBDP 838599 ONDANSETRON Inactive FOLIC ACID 1 MG TABS Take one by mouth four times daily, morning, noon, early evening and bedtime. FOLIC ACID 1 MG TABS 850055 FOLIC ACID Inactive PLUS 27-1 MG TABS Take one by mouth daily PLUS 27-1 MG TABS VIT-FE FUMARATE-FA Inactive Advance Directives Directive Description Start Date PERMISSION TO SHARE Immunizations Vaccine Administration Date Value Standard Description Boostrix (Tetanus toxoid, reduced diphtheria toxoid and acellular pertussis vaccine, adsorbed), booster Boostrix [[id number]] tetanus toxoid, reduced diphtheria toxoid, and acellular pertussis vaccine, adsorbed Seasonal influenza vaccine, injectable, containing preservative, for > 3 years old (Afluria, FluLaval, Fluzone, Fluvirin, Fluarix, Agriflu(>=18 yo)) Fluzone (>3 yrs.) [[id number]] Influenza, seasonal, injectable hepatitis B vaccine series [...] AUTO - Chemistry sodium, serum 146 mmol/L 395-863 6128/02/26 potassium, serum 4.7 mmol/L 3.5-5.2 chloride, serum [...] Negative Encounters Code Encounter Date Provider Facility CPT-03194 Level 3 Est. Patient 12:16:13 PRODUCE RUNNER Michele Claudio DO [facility] CPT-66081 Level 3 Est. Patient 14:44:28 CDT Justin Colbert MD [facility] Procedures Code Procedure Name Date Entry Date Standard Description CPT-76974 Visit 16:12:23 PRODUCE RUNNER CPT-64619 Visit 11:24:43 PRODUCE RUNNER CPT-74918 Sono-OB F/U Growth 11:20:39 PRODUCE RUNNER CPT-36558 Visit 14:24:09 PRODUCE RUNNER CPT-09680 Sono OB comp > 14 weeks 09:57:55 CDT CPT-91241 Visit 09:31:46 CDT CPT-25402 Visit 14:37:39 CDT CPT-48800 Sono OB comp > 14 weeks 17:52:59 CDT CPT-96697 Administration 2+ single or combination vaccines inc oral 16:49:57 CDT CPT-27254 Administration single or combination vaccine inc oral 16 :49:57 CDT CPT-78900 Influenza split virus > age 3 16:49:57 CDT CPT-70846 Tdap 16:49:57 CDT CPT-96937 Spec Collection and Handling Fee 14:43:01 CDT CPT-06231 Visit 14:43:01 CDT CPT-OV Office Visit 09:48:35 CDT
--- OUTSIDE RECORDS SUMMARY | 2016-10-07 17:59 | XMS REPORT | Clinical Summary ---
Author Author Admin, VESTA Hatch [facility] Address Unknown Phone Unavailable Allergies, Adverse [...] 1/2 by mouth twice a day LEVETIRACETAM 05964522182 Active Grecia Wesley APRN Active OMEPRAZOLE 20 MG CPDR 1 tablet by mouth daily OMEPRAZOLE 29751107073 Active Grecia Wesley APRN Active PLUS 27-1 MG TABS Take one by mouth daily VIT-FE FUMARATE-FA 18650091862 No Longer Active Grecia Wesley APRN Active FOLIC ACID 1 MG TABS Take one by mouth four times daily, morning, noon, early evening and bedtime. FOLIC ACID 48074906047 No Longer Active Grecia Wesley APRN Active ZOFRAN ODT 4 MG TBDP one tab PO Q8 hours PRN ONDANSETRON 91182511749 No Longer Active Grecia Wesley APRN Active LEVOTHYROXINE SODIUM 150 MCG TABS Take one by mouth daily LEVOTHYROXINE SODIUM 24867375635 Active Grecia Wesley APRN Active LEVOTHROID 25 MCG TABS one tab PO daily LEVOTHYROXINE SODIUM 92231424371 No Longer Active Anupllerum Wesley APRN Active LEVOTHROID 137 MCG TABS 1 tab po qd with 25mcg LEVOTHYROXINE SODIUM 13486303554 No Longer Active Grecia Wesley APRN Active RAMONA 0.35 MG TABS NORETHINDRONE 60859080181 Active Callie Benitez MD Active METOPROLOL SUCCINATE ER 50 MG [id number] by mouth twice a day METOPROLOL SUCCINATE 97993303101 No Longer Active Callie Benitez MD Active POTASSIUM 99 MG TABS by mouth twice a day POTASSIUM 27469296458 No Longer Active Callie Benitez MD Active AMOXICILLIN 500 MG CAPS by mouth twice a day AMOXICILLIN 66416779731 No Longer Active Callie Benitez MD Active ULTRAM 50 MG TABS 1 tab every 4-6 hours as needed TRAMADOL HCL 88925353947 No Longer Active Callie Benitez MD Active HYDROCODONE-ACETAMINOPHEN 5-500 MG TABS 1 tab every 4-6 hours as needed HYDROCODONE-ACETAMINOPHEN 70773425428 No Longer Active Callie Benitez MD Active CALCIUM 600 MG TABS by mouth twice a day CALCIUM 69067400938 Active Callie Benitez MD Active HYDROCODONE-ACETAMINOPHEN 5-500 MG TABS 1 tab every 4-6 hours as needed HYDROCODONE-ACETAMINOPHEN 5-500 MG TABS HYDROCODONE- ACETAMINOPHEN Inactive ULTRAM 50 MG TABS 1 tab every 4-6 hours as needed ULTRAM 50 MG TABS 065437 TRAMADOL HCL Inactive AMOXICILLIN 500 MG CAPS by mouth twice a day AMOXICILLIN 500 MG CAPS 772122 AMOXICILLIN Inactive POTASSIUM 99 MG TABS by mouth twice a day POTASSIUM 99 MG TABS 657383 POTASSIUM Inactive METOPROLOL SUCCINATE ER 50 MG WZ84R-LPN by mouth twice a day METOPROLOL SUCCINATE ER 50 MG IS17K-BAR METOPROLOL SUCCINATE Inactive LEVOTHROID 137 MCG TABS 1 tab po qd with 25mcg LEVOTHROID 137 MCG TABS LEVOTHYROXINE SODIUM Inactive LEVOTHROID 25 MCG TABS one tab PO daily LEVOTHROID 25 MCG TABS LEVOTHYROXINE SODIUM Inactive ZOFRAN ODT 4 MG TBDP one tab PO Q8 hours PRN ZOFRAN ODT 4 MG TBDP 980473 ONDANSETRON Inactive FOLIC ACID 1 MG TABS Take one by mouth four times daily, morning, noon, early evening and bedtime. FOLIC ACID 1 MG TABS 925475 FOLIC ACID Inactive PLUS 27-1 MG TABS Take one by mouth daily PLUS 27-1 MG TABS VIT-FE FUMARATE-FA Inactive Advance Directives Directive Description Start Date PERMISSION TO SHARE Immunizations Vaccine Administration Date Value Standard Description Seasonal influenza vaccine, injectable, containing preservative, for > 3 years old (Afluria, FluLaval, Fluzone, Fluvirin, Fluarix, Agriflu(>=18 yo)) Fluzone (>3 yrs.) [[id number]] Influenza, seasonal, injectable Boostrix (Tetanus toxoid, reduced diphtheria toxoid and acellular pertussis vaccine, adsorbed), booster Boostrix [[id number]] tetanus toxoid, reduced diphtheria toxoid, and acellular [...] AUTO - Chemistry sodium, serum 146 mmol/L 069-399 5258/02/26 potassium, serum 4.7 mmol/L 3.5-5.2 chloride, serum [...] Negative Encounters Code Encounter Date Provider Facility CPT-98379 Level 3 Est. 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 Patient 14:44:28 CDT Justin Colbert MD [facility] Procedures Code Procedure Name Date Entry Date Standard Description CPT-16101 Visit 16:12:23 TELEGRAPHIC TYPEWRITER INSTALLER CPT-30978 Visit 11:24:43 TELEGRAPHIC TYPEWRITER INSTALLER CPT-42190 Sono-OB F/U Growth 11:20:39 TELEGRAPHIC TYPEWRITER INSTALLER CPT-99663 Visit 14:24:09 TELEGRAPHIC TYPEWRITER INSTALLER CPT-92665 Sono OB comp > 14 weeks 09:57:55 CDT CPT-41916 Visit 09:31:46 CDT CPT-76725 Visit 14:37:39 CDT CPT-77908 Sono OB comp > 14 weeks 17:52:59 CDT CPT-77036 Administration 2+ single or combination vaccines inc oral 16:49:57 CDT CPT-40659 Administration single or combination vaccine inc oral 16 :49:57 CDT CPT-60584 Influenza split virus > age 3 16:49:57 CDT CPT-98947 Tdap 16:49:57 CDT CPT-18982 Spec Collection and Handling Fee 14:43:01 CDT CPT-53412 Visit 14:43:01 CDT CPT-OV Office Visit 09:48:35 CDT
--- OUTSIDE RECORDS SUMMARY | 2016-10-07 18:00 | XMS REPORT | Clinical Summary ---
Author Author Admin, VESTA Hatch [facility] Address Unknown Phone Unavailable Allergies, Adverse [...] 1/2 by mouth twice a day LEVETIRACETAM 24092494121 Active Grecia Wesley APRN Active OMEPRAZOLE 20 MG CPDR 1 tablet by mouth daily OMEPRAZOLE 19016324687 Active Grecia Wesley APRN Active PLUS 27-1 MG TABS Take one by mouth daily VIT-FE FUMARATE-FA 99710149418 No Longer Active Grecia Wesley APRN Active FOLIC ACID 1 MG TABS Take one by mouth four times daily, morning, noon, early evening and bedtime. FOLIC ACID 82105323451 No Longer Active Grecia Wesley APRN Active ZOFRAN ODT 4 MG TBDP one tab PO Q8 hours PRN ONDANSETRON 19956455575 No Longer Active Grecia Wesley APRN Active LEVOTHYROXINE SODIUM 150 MCG TABS Take one by mouth daily LEVOTHYROXINE SODIUM 65995397562 Active Grecia Wesley APRN Active LEVOTHROID 25 MCG TABS one tab PO daily LEVOTHYROXINE SODIUM 68976974637 No Longer Active Anupllerum Wesley APRN Active LEVOTHROID 137 MCG TABS 1 tab po qd with 25mcg LEVOTHYROXINE SODIUM 51014062607 No Longer Active Grecia Wesley APRN Active RAMONA 0.35 MG TABS NORETHINDRONE 39131714737 Active Callie Benitez MD Active METOPROLOL SUCCINATE ER 50 MG GL09P-BSX by mouth twice a day METOPROLOL SUCCINATE 53770736565 No Longer Active Callie Benitez MD Active POTASSIUM 99 MG TABS by mouth twice a day POTASSIUM 90745650374 No Longer Active Callie Benitez MD Active AMOXICILLIN 500 MG CAPS by mouth twice a day AMOXICILLIN 17490159258 No Longer Active Callie Benitez MD Active ULTRAM 50 MG TABS 1 tab every 4-6 hours as needed TRAMADOL HCL 01223154080 No Longer Active Callie Benitez MD Active HYDROCODONE-ACETAMINOPHEN 5-500 MG TABS 1 tab every 4-6 hours as needed HYDROCODONE-ACETAMINOPHEN 23015780350 No Longer Active Callie Benitez MD Active CALCIUM 600 MG TABS by mouth twice a day CALCIUM 40635332729 Active Callie Benitez MD Active HYDROCODONE-ACETAMINOPHEN 5-500 MG TABS 1 tab every 4-6 hours as needed HYDROCODONE-ACETAMINOPHEN 5-500 MG TABS HYDROCODONE- ACETAMINOPHEN Inactive ULTRAM 50 MG TABS 1 tab every 4-6 hours as needed ULTRAM 50 MG TABS 854463 TRAMADOL HCL Inactive AMOXICILLIN 500 MG CAPS by mouth twice a day AMOXICILLIN 500 MG CAPS 783755 AMOXICILLIN Inactive POTASSIUM 99 MG TABS by mouth twice a day POTASSIUM 99 MG TABS 215572 POTASSIUM Inactive METOPROLOL SUCCINATE ER 50 MG DO54R-OWM by mouth twice a day METOPROLOL SUCCINATE ER 50 MG WN56E-RRQ METOPROLOL SUCCINATE Inactive LEVOTHROID 137 MCG TABS 1 tab po qd with 25mcg LEVOTHROID 137 MCG TABS LEVOTHYROXINE SODIUM Inactive LEVOTHROID 25 MCG TABS one tab PO daily LEVOTHROID 25 MCG TABS LEVOTHYROXINE SODIUM Inactive ZOFRAN ODT 4 MG TBDP one tab PO Q8 hours PRN ZOFRAN ODT 4 MG TBDP 701944 ONDANSETRON Inactive FOLIC ACID 1 MG TABS Take one by mouth four times daily, morning, noon, early evening and bedtime. FOLIC ACID 1 MG TABS 243805 FOLIC ACID Inactive PLUS 27-1 MG TABS Take one by mouth daily PLUS 27-1 MG TABS VIT-FE FUMARATE-FA Inactive Advance Directives Directive Description Start Date PERMISSION TO SHARE Immunizations Vaccine Administration Date Value Standard Description Seasonal influenza vaccine, injectable, containing preservative, for > 3 years old (Afluria, FluLaval, Fluzone, Fluvirin, Fluarix, Agriflu(>=18 yo)) Fluzone (>3 yrs.) [[id number]] Influenza, seasonal, injectable Boostrix (Tetanus toxoid, reduced diphtheria toxoid and acellular pertussis vaccine, adsorbed), booster Boostrix [[id number]] tetanus toxoid, reduced diphtheria toxoid, and acellular pertussis vaccine, adsorbed hepatitis B vaccine series no hepatitis B vaccine, unspecified formulation Vital Signs Date Name Value Unit Range Description blood pressure, diastolic - 8462-4 68 mm[Hg] BP raines blood pressure, systolic - 8480-6 110 mm[Hg] BP sys pulse rate E&M - 8867-4 96 /min Heart rate temperature E&M 97.3 [degF] Body temperature Diagnostic Results Date Name Value Unit Range Description Lab Report: CBC, Comp. Metabolic Panel, UADIP W/MICRO, AUTO - Chemistry sodium, serum 146 mmol/L 330-018 0457/02/26 potassium, serum 4.7 mmol/L 3.5-5.2 chloride, serum [...] Negative Encounters Code Encounter Date Provider Facility CPT-90747 Level 3 Est. 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 Patient 14:44:28 CDT Justin Colbert MD [facility] Procedures Code Procedure Name Date Entry Date Standard Description CPT-52184 Visit 16:12:23 DOPE AND FABRIC WORKER CPT-69850 Visit 11:24:43 DOPE AND FABRIC WORKER CPT-48837 Sono-OB F/U Growth 11:20:39 DOPE AND FABRIC WORKER CPT-88841 Visit 14:24:09 DOPE AND FABRIC WORKER CPT-42205 Sono OB comp > 14 weeks 09:57:55 CDT CPT-70460 Visit 09:31:46 CDT CPT-75159 Visit 14:37:39 CDT CPT-40694 Sono OB comp > 14 weeks 17:52:59 CDT CPT-07648 Administration 2+ single or combination vaccines inc oral 16:49:57 CDT CPT-52147 Administration single or combination vaccine inc oral 16 :49:57 CDT CPT-71348 Influenza split virus > age 3 16:49:57 CDT CPT-38512 Tdap 16:49:57 CDT CPT-21633 Spec Collection and Handling Fee 14:43:01 CDT CPT-90845 Visit 14:43:01 CDT CPT-OV Office Visit 09:48:35 CDT
== END 2016-09-22 13:40 | disposition home or self-care (01) ==
LOC: EDUNIT# 10:49 → ER 10:50
DX: R40.0 Somnolence (principal); T42.3X1A Poisoning by barbiturates, accidental (unintentional), initial encounter; F32.9 Major depressive disorder, single episode, unspecified; F41.9 Anxiety disorder, unspecified; E86.9 Volume depletion, unspecified; Z63.5 Disruption of family by separation and divorce; F17.210 Nicotine dependence, cigarettes, uncomplicated
CPT/HCPCS: 36415; 80053; 80306; 80320; 80329; 81000; 84439; 84443; 84703; 85007; 85027; 93005; 93041